=== PATIENT | female | born 1935 | race Caucasian/White ===

== ENCOUNTER 2016-09-07 09:13 | Inpatient (IN) ==
[2016-09-07] MEDS ORDERED: SODIUM CHLORIDE 0.9% 500 ML IV STA ×2 (09:50→12:45)
[2016-09-07] MEDS ORDERED: FUROSEMIDE 20 MG/2 ML VIAL IV STA (10:19)
[2016-09-07] MEDS ORDERED: FUROSEMIDE 20 MG/2 ML VIAL ONE (10:23)
[2016-09-07 10:29] LABS: Basophils % 0.4 % (0.0-0.8); Hematocrit 46.5 VOL% (35.7-47.0); Hemoglobin 15.3 GM/DL (12.0-16.0); Immature Granulocytes % 0.8 %; Immature Granulocytes Absolute 0.04 #; Lymphocytes # 1.5 10*3/uL (1.4-4.0); Mean Corpuscular HGB Conc 32.9 GM/DL (32-36); Mean Corpuscular Hemoglobin 33 PG (27-34); Mean Corpuscular Volume 100.4 FL (87-102); Mean Platelet Volume 10.3 FL (9.6-12.0); Monocytes # 0.6 10*3/uL (0.11-0.8); Monocytes % 10.7 % (1.7-12.7); NRBC # 0.03 10*3/uL; Neutrophils # 3.2 10*3/uL (1.4-7.4); Neutrophils % 60.1 % (38.7-73.9); Platelet Count 156 T/CUMM (130-400); Red Blood Count 4.63 MC/CUMM (3.8-5.5); Red Cell Distribution Width 13.2 % (9.3-17.3); White Blood Count 5.3 T/CUMM (4-12)
[2016-09-07 10:35] LABS: Amorphous Crystals,Urine Occasional /HPF (Few); Apearance,Urine Slightly Hazy (Clear); Bacteria,Urine Occasional /HPF (Few); Bilirubin,Urine Negative (Negative); Blood, Urine Negative (Negative); Glucose,Urine (UA) Negative (Negative); Hyaline Casts,Urine 3 /LPF (0-3); Ketones,Urine Negative (Negative); Mucus,Urine Occasional /LPF (Occasional); Nitrite,Urine Negative (Negative); Protein,Urine 30 MG/DL; RBC,Urine 1 /HPF (0-4); Squamous Epithelial Cell,Urine Occasional /HPF (0-10); Urine Color Yellow (Yellow); Urine Specific Gravity 1.015 (1.001-1.035); Urine Urobilinogen < 2.0 EU/DL (0.2-1.0); WBC,Urine <1 /HPF (0-6)
[2016-09-07 10:59] LABS: Lymphocytes 26 % (20-55); Metamyelocytes 1 %; Nucleated Red Blood Cells 1 (0-5); Platelet Estimate Adequate; Segmented Neutrophils 67 % (50-85); Total Cells Counted 100
[2016-09-07 11:03] LABS: Albumin 2.8 G/DL (3.4-5.0); Bilirubin,Total 0.6 MG/DL (0.2-1.0); Calcium 7.9 MG/DL (8.5-10.1); Osmolality,Calculated 276.4 MOS/KG (273-304); Total Protein 6.1 G/DL (6.4-8.3)
[2016-09-07] MEDS ORDERED: ONDANSETRON 4 MG/2 ML VIAL IV PRN (12:47)
--- NOTE | 2016-09-07 12:47 | Emergency Department Note ---
Lisandro Espitia Jamie, am scribing for, and in the presence of, Yair Snyder MD 09:41. Claudio Espitia Doug C, MD, personally performed the services described in this documentation, ascribed by Pranav Mcmahon in my presence, and it is both accurate and complete . Arrival - Arrival Chief Complaint: Non-Specific Stated Complaint: diarrehea/upper respiratory ED Nursing Triage Note: Pt was seen by Dr Alvarez with URI on given ABX but has not gotten better then yesterday she started having diarrhea. Pt family member also called and said pt has been having AMS. Mode of Arrival: Wheelchair Limitations: No Limitations Source: Patient, RN Notes Reviewed - History of Present Illness HPI Narrative: Patient 80-year-old white female who presents emergency room complaining of diarrhea. Patient states she was diagnosed with upper respiratory tract infection on and started on antibiotics and a cough syrup. She developed diarrhea beginning the next day she still misses had 3 bowel movements already this morning. She states they are watery and there is no mucus or blood in the stool that she is seen. She denies any associated abdominal pain. She denies any fever or chills. She has no past medical history of diverticulitis or other colon problems that she is aware of. Onset (ago): day(s) (1) Consistency: constant Severity: moderate Allergies/Adverse Reactions: Allergies Allergy/AdvReac Type Severity Reaction Status Date / Time cephalexin [From Keflex] Allergy Severe RASH Verified 01/04/15 10:19 Penicillins Allergy Severe RASH Verified 01/04/15 10:19 PLASTIC TAPE Allergy Severe BLISTER Uncoded 01/04/15 10:19 Home Medications: Home Medications Medication Instructions Recorded Confirmed Type Acetaminophen Tab [Tylenol Tab] 650 mg PO Q4-6H PRN 11/23/14 09/07/16 History Dabigatran [Pradaxa] 75 mg PO BID 11/23/14 09/07/16 History Furosemide Tab [Lasix Tab] 40 mg PO QAM 11/23/14 09/07/16 History Gabapentin Cap/Tab [Neurontin 200 mg PO QID 11/23/14 09/07/16 History Cap/Tab] Irbesartan/Hydrochlorothiazide 0.5 each PO DAILY 11/23/14 09/07/16 History [Irbesartan-Hctz 300-12.5 mg Tb] Magnesium Oxide 400 mg PO TID 11/23/14 09/07/16 History Methocarbamol Tab [Robaxin Tab] 750 mg PO QID 11/23/14 09/07/16 History Metoprolol Tartrate Tab [Lopressor 25 mg PO BID 11/23/14 09/07/16 History Tab] Oxycodone HCl/Acetaminophen 1 each PO Q6H PRN 11/23/14 09/07/16 History [Oxycodone-Acetaminophen 10-325] Potassium Chloride 20 meq PO QPM 11/23/14 09/07/16 History Rabeprazole Sodium 20 mg PO BID 11/23/14 09/07/16 History Loperamide Cap [Imodium Cap] 2 mg PO Q4HR PRN #12 capsule 08/07/16 09/07/16 Rx Ondansetron [Ondansetron Odt] 4 mg PO Q4H PRN #10 tab.rapdis 08/07/16 09/07/16 Rx Cefdinir [Cefdinir] 300 mg PO Q12H 09/07/16 09/07/16 History clonazePAM [Clonazepam] 0.25 mg PO DAILY PRN 09/07/16 09/07/16 History fentaNYL 25 MCG/HR PATCH 1 patch TOP Q72H 09/07/16 09/07/16 History [Duragesic 25 Patch] Review of System - Review of System 12 point system: reviewed and no additional remarkable complaints except as stated - Review of System Constitutional: Absent: chills, diaphoresis, fever, weakness Eyes: Absent: vision change Respiratory: Absent: cough Cardiovascular: Absent: chest pain Gastrointestinal: Present: nausea, diarrhea. Absent: constipation Musculoskeletal: Absent: joint swelling Skin: Absent: rash, change in color Neurological: Absent: headache, weakness, numbness, confusion Hematological/Lymphatic: Absent: easy bleeding, easy bruising Medical,Surgical,& Family Hx - Medical History Cardio: History of: Cardiac Dysrhythmia (A-FIB), Hypertension Neurology: History of: Peripheral Neuropathy No history of: Seizures HEENT: History of: Eye Problem (CATARACTS) Endocrine: History of: Dyslipidemia Genitourinary: History of: Recurring Urinary Tract Infections Gastrointestinal: History of: GERD Musculoskeletal: History of: Back/Neck Problems No history of: Musculoskeletal Problems (scoliosis) Other: History of: Skin Problems (FOR [facility] LEFT LOWER LEG 01/04/15 DR. ANDERSON;HX DEBRIDEMENT) - Surgical History Neurologic Surgeries: Patient denies: Neurologic Surgery HEENT Surgeries: Surgical HX of: Eye Surgery (CATARACTS), Tonsilectomy & Adenoidectomy Reproductive Surgeries: Surgical HX of;: Section, Gynecologic Surgery, Hysterectomy Orthopedic Surgeries: Surgical HX of;: Orthopedic Surgery (left shoulder replacement herrrington irina in back), Total Knee Replacement (right, left foot plate) - Family History Family History: Reports;: Family Cancer (SISTER BROTHER), Family Diabetes ( SISTER BROTHER MOM), Family Heart Disease (DAD), Family Stroke (MOM) - Social History Smoking Status: Never smoker Exam Vital Signs: Vital Signs Temperature 97.0 F L 09/07/16 09:49 Pulse Rate 64 09/07/16 09:49 Respiratory Rate 20 09/07/16 09:49 Blood Pressure 148/105 09/07/16 09:49 O2 Sat by Pulse Oximetry 91 L 09/07/16 09:14 - General General appearance: alert, in no apparent distress - Head Head exam: Present: atraumatic, normocephalic, normal inspection - Eye Eye exam: Present: normal appearance, PERRL, EOMI - ENT ENT exam: Present: normal exam, normal oropharynx, mucous membranes moist - Neck Neck exam: Present: normal inspection, full ROM - Chest Chest inspection: Present: normal inspection, symmetric chest wall rise - Respiratory Respiratory exam: Present: normal lung sounds bilaterally - Cardiovascular Cardiovascular exam: Present: regular rate, normal rhythm, normal heart sounds - Abdominal Exam Abdominal exam: Present: soft, normal bowel sounds. Absent: tenderness, guarding, rebound - Extremities Exam Extremities exam: Present: normal inspection, full ROM - Neurological Exam Neurological exam: Present: alert, oriented X3, CN II-XII intact, reflexes normal - Psychiatric Psychiatric exam: Present: normal affect, normal mood - Skin Skin exam: Present: warm, dry, intact, normal color Course Course Narrative: Patient's clinical presentation, laboratory findings were discussed with Kayla who is covering the hospitalist service. Patient be seen in the emergency room and evaluated for admission. Results - Labs CBC & BMP: 09/07/16 10:20 09/07/16 10:20 Lab Results: I have reviewed the patients labs Disposition Clinical Impression: Dehydration, Hyperkalemia Case discussed with: patient, patient's family Disposition: Still a Patient Condition: Stable Time of Disposition: 12:47
--- NOTE | 2016-09-07 12:52 | EKG Report ---
Stationary ECG Study [facility] ER Test Date: 09/07/2016 12:50:15 PM Pat Name: SHILA SPANGLER Department: Room: Gender: F [employer] Operations Division: SUSANNAH Graham : 1935 Requested by: Gigi Craig Order Number: [id number] Jacqui MD: LATOYA HERNANDEZ Intervals Sharon Rate: 59 P: 246 CT: 107 QRS: 24 QRSD: 113 T: -84 QT: 445 QTc: 445 Interpretive Statements JUNCTIONAL RHYTHM RIGHT BUNDLE BRANCH BLOCK MODERATE T-WAVE ABNORMALITY, CONSIDER LATERAL ISCHEMIA MODERATE T-WAVE ABNORMALITY, CONSIDER INFERIOR ISCHEMIA Electronically Signed On 09-08-16 07:01:51 CDT by LATOYA HERNANDEZ [email or web address]
--- NOTE | 2016-09-07 13:08 | Hospitalist History & Physical ---
Assessment and Plan (1) Acute diarrhea Status: Acute Assessment and plan: Will hydrate; obtain stool for c-diff/o&p, WBC. Will start Flagyl prophylactically. Current Visit: Yes (2) Dehydration Status: Acute Assessment and plan: Will rehydrate; and assess in in AM. Current Visit: Yes (3) Hyperkalemia Status: Acute Assessment and plan: Potassium 6.0 at time of admission; I think that this largely in part to volume deficit. Will rehydrate and re-assess in AM. Current Visit: Yes (4) Atrial fibrillation Status: Chronic Assessment and plan: Rate is controlled; we will resume home meds. Current Visit: No (5) Hypertension Status: Chronic Assessment and plan: Blood pressures are stable; will monitor. Current Visit: No (6) Acute kidney injury Status: Acute Current Visit: Yes History of Present Illness Chief complaint: diarrhea/weakness History of present illness: This a very pleasant 80 year old female that presented to the ED at [facility] for evaluation of diarrhea and weakness. The patient has a very complex medical history significant for atrial fibrillation, dyslipidemia, peripheral neuropathy, chronic urinary tract infections, and GERD. She has a surgical history of cataract removal, tonsillectomy, adenoidectomy, Section, hysterectomy, left shoulder replacement, Das irina placement back, right total knee placement, and left foot surgery with hardware placement. On , the patient was seen at her PCP for upper respiratory symptoms. She was told that she an upper respiratory infection. She was prescribed antibiotics and cough syrup for home use. The patient reported the onset of above symptoms on the same day. She reports that she has had multiple stools that were watery in consistency; however absent for blood and mucus. As a result of the persistent diarrhea, she became progressively weak and mildly confused. Her became alarmed and brought her to the ED for further evaluation. Labs were obtained which revealed hypekalemia with a potassium of 6.0, hyponatremia with a sodium of 133, hypochloremia with a chloride of 96,and renal insufficiency with a BUN of 41 and creatinine of 1.3. After brief discussion with both Dr. Snyder and Dr. Guzman, the patient will be admitted to the hospitalist service for continuation of care. Home Medications Medication Instructions Recorded Confirmed Type Acetaminophen Tab [Tylenol Tab] 650 mg PO Q4-6H PRN 11/23/14 09/07/16 History Dabigatran [Pradaxa] 75 mg PO BID 11/23/14 09/07/16 History Furosemide Tab [Lasix Tab] 40 mg PO QAM 11/23/14 09/07/16 History Gabapentin Cap/Tab [Neurontin 200 mg PO QID 11/23/14 09/07/16 History Cap/Tab] Irbesartan/Hydrochlorothiazide 0.5 each PO DAILY 11/23/14 09/07/16 History [Irbesartan-Hctz 300-12.5 mg Tb] Magnesium Oxide 400 mg PO TID 11/23/14 09/07/16 History Methocarbamol Tab [Robaxin Tab] 750 mg PO QID 11/23/14 09/07/16 History Metoprolol Tartrate Tab [Lopressor 25 mg PO BID 11/23/14 09/07/16 History Tab] Oxycodone HCl/Acetaminophen 1 each PO Q6H PRN 11/23/14 09/07/16 History [Oxycodone-Acetaminophen 10-325] Potassium Chloride 20 meq PO QPM 11/23/14 09/07/16 History Rabeprazole Sodium 20 mg PO BID 11/23/14 09/07/16 History Loperamide Cap [Imodium Cap] 2 mg PO Q4HR PRN #12 capsule 08/07/16 09/07/16 Rx Ondansetron [Ondansetron Odt] 4 mg PO Q4H PRN #10 tab.rapdis 08/07/16 09/07/16 Rx Cefdinir [Cefdinir] 300 mg PO Q12H 09/07/16 09/07/16 History clonazePAM [Clonazepam] 0.25 mg PO DAILY PRN 09/07/16 09/07/16 History fentaNYL 25 MCG/HR PATCH 1 patch TOP Q72H 09/07/16 09/07/16 History [Duragesic 25 Patch] Allergies Allergy/AdvReac Type Severity Reaction Status Date / Time cephalexin [From Keflex] Allergy Severe RASH Verified 01/04/15 10:19 Penicillins Allergy Severe RASH Verified 01/04/15 10:19 PLASTIC TAPE Allergy Severe BLISTER Uncoded 01/04/15 10:19 Medical,Surgical,& Family Hx - Medical History Cardio: History of: Cardiac Dysrhythmia (A-FIB), Hypertension Neurology: History of: Peripheral Neuropathy No history of: Seizures HEENT: History of: Eye Problem (CATARACTS) Endocrine: History of: Dyslipidemia Genitourinary: History of: Recurring Urinary Tract Infections Gastrointestinal: History of: GERD Musculoskeletal: History of: Back/Neck Problems No history of: Musculoskeletal Problems (scoliosis) Other: History of: Skin Problems (FOR [facility] LEFT LOWER LEG 01/04/15 DR. ANDERSON;HX DEBRIDEMENT) - Surgical History Neurologic Surgeries: Patient denies: Neurologic Surgery HEENT Surgeries: Surgical HX of: Eye Surgery (CATARACTS), Tonsilectomy & Adenoidectomy Reproductive Surgeries: Surgical HX of;: Section, Gynecologic Surgery, Hysterectomy Orthopedic Surgeries: Surgical HX of;: Orthopedic Surgery (left shoulder replacement herrrington irina in back), Total Knee Replacement (right, left foot plate) - Family History Family History: Reports;: Family Cancer (SISTER BROTHER), Family Diabetes ( SISTER BROTHER MOM), Family Heart Disease (DAD), Family Stroke (MOM) - Social History Smoking Status: Never smoker 12 point system: reviewed and no additional remarkable complaints except as stated Exam - Constitutional General appearance: normal weight, no acute distress - Head Head exam: Present: normal inspection, normocephalic, atraumatic - Eye Eye exam: Present: EOMI. Absent: conjunctival injection Pupils: Present: BLANKA, normal accommodation - ENT ENT exam: Present: normal exam, normal external ear exam - Neck Neck exam: Present: normal inspection. Absent: lymphadenopathy, meningismus, tenderness, thyromegaly - Respiratory Respiratory exam: Present: clear to auscultation bilaterally. Absent: rales, rhonchi, stridor, wheezes - Cardiovascular Cardiovascular exam: Present: bradycardia, irregular rhythm (a-fib). Absent: carotid bruit, diastolic murmur, gallop, rubs, systolic murmur - GI/Abdominal GI/Abdominal exam: Present: normal bowel sounds. Absent: distended, firm, guarding, mass, soft - Extremities Exam Extremities exam: Present: normal inspection, normal capillary refill, full ROM. Absent: calf tenderness, edema - Back Exam Back exam: Present: normal inspection - Neurological Exam Neurological exam: Present: alert, oriented X3. Absent: CN II-XII intact - Psychiatric Psychiatric exam: Present: normal affect, normal mood - Skin Skin exam: Present: normal color, warm, dry Results - Labs CBC & BMP: 09/07/16 10:20 09/07/16 10:20 Lab Results: I have reviewed the past 24 hour labs
[2016-09-07 13:16] LABS: Magnesium 2.5 MG/DL (1.8-2.4); Risk Ratio 2.77; Thyroid Stimulating Hormone 1.45 uIU/ml (0.358-3.74); VLDL CHOLESTEROL 27.6 MG/DL
[2016-09-07] MEDS: DEXTROSE 5% NACL 0.45% 1,000 ML IV SCH (15:14)
[2016-09-07] MEDS: metroNIDAZOLE INJ 500 MG in PREMIX 1 EACH IV SCH ×2 (15:14→20:09)
--- NOTE | 2016-09-07 15:59 | XRay Report ---
XR chest 1V portable Indication: Wheezing and cough Comparison: None. Technique: Portable AP chest was performed. Findings: Mild cardiomegaly is present. Opacification of the left lung base may in part reflect pleural fluid or atelectasis. Additional stranding in the right cardiophrenic angle is demonstrated. Previous repair of scoliosis as well as prior left glenohumeral joint arthroplasty are present. The right glenohumeral joint appears to be subluxed. This may reflect positioning. Impression: 1. Infectious process and/or pleural fluid within the left lung base is not excluded. 09/07/2016 3:56 PM PROCEDURE INTERPRETED AT [facility] [place] DEPARTMENT OF RADIOLOGY Final Report Signed by: Dr. Moisés Sanches
[2016-09-07] MEDS: ALBUTEROL/IPRATROPIUM 3 ML NEB RESP TX SCH ×2 (19:13→23:58)
[2016-09-08] MEDS: metroNIDAZOLE INJ 500 MG in PREMIX 1 EACH IV SCH ×4 (03:15→20:32)
[2016-09-08] MEDS: DEXTROSE 5% NACL 0.45% 1,000 ML IV SCH (03:17)
[2016-09-08 03:26] LABS: Basophils % 0.4 % (0.0-0.8); Hematocrit 41.7 VOL% (35.7-47.0); Hemoglobin 13.3 GM/DL (12.0-16.0); Immature Granulocytes % 0.6 %; Immature Granulocytes Absolute 0.03 #; Lymphocytes # 1.4 10*3/uL (1.4-4.0); Mean Corpuscular HGB Conc 31.9 GM/DL (32-36); Mean Corpuscular Hemoglobin 33 PG (27-34); Mean Platelet Volume 10.2 FL (9.6-12.0); Monocytes # 0.5 10*3/uL (0.11-0.8); Monocytes % 10.1 % (1.7-12.7); NRBC # 0.03 10*3/uL; Neutrophils % 60.9 % (38.7-73.9); Platelet Count 157 T/CUMM (130-400); Red Blood Count 4.05 MC/CUMM (3.8-5.5); Red Cell Distribution Width 12.9 % (9.3-17.3)
[2016-09-08 03:30] LABS: Albumin 2.5 G/DL (3.4-5.0); Bilirubin,Total 0.7 MG/DL (0.2-1.0); Calcium 7.5 MG/DL (8.5-10.1); Magnesium 2.1 MG/DL (1.8-2.4); Osmolality,Calculated 285.5 MOS/KG (273-304); Potassium 4.2 MMOL/L (3.5-5.1)
[2016-09-08] MEDS: ALBUTEROL/IPRATROPIUM 3 ML NEB RESP TX SCH ×5 (03:55→19:38)
[2016-09-08 04:36] LABS: Lymphocytes 27 % (20-55); Platelet Estimate Normal; Segmented Neutrophils 63 % (50-85); Total Cells Counted 100
[2016-09-08] MEDS ORDERED: ONDANSETRON ODT 4 MG TABLET PO PRN (09:54)
[2016-09-08] MEDS ORDERED: LOPERAMIDE 2 MG CAPSULE PO PRN (09:54)
[2016-09-08] MEDS ORDERED: fentaNYL 25 MCG/HR PATCH TRANSDERM SCH (10:00)
[2016-09-08] MEDS: hydroCHLOROthiazide 12.5 MG CAPSULE PO SCH (10:18)
[2016-09-08] MEDS: IRBESARTAN 150 MG TABLET PO SCH (10:19)
[2016-09-08] MEDS: DABIGATRAN 75 MG CAPSULE PO SCH ×2 (10:19→20:32)
[2016-09-08] MEDS: METOPROLOL TARTRATE 25 MG TABLET PO SCH ×2 (10:19→20:32)
[2016-09-08] MEDS ORDERED: clonazePAM 0.5 MG TABLET PO PRN (10:30)
--- NOTE | 2016-09-08 11:50 | Hospitalist Progress Note ---
Assessment and Plan - Time spent with patient Time spent with patient: Greater than 30 minutes (1) Pneumonia Status: Acute Assessment and plan: Start Ciprofloxacin. Current Visit: Yes (2) Diarrhea Status: Acute Assessment and plan: Stool studies negative, start lactobacillus and imodium prn. Current Visit: Yes (3) Weakness Status: Acute Assessment and plan: PT/OT/SW. Current Visit: Yes (4) Atrial fibrillation Status: Chronic Assessment and plan: Sinus, continue anticoagulant. Current Visit: No (5) Hypertension Status: Chronic Assessment and plan: Continue medications. Current Visit: No Hospitalist: Subjective Interval history: States she is weak this morning. Has no appetite. Furthermore complains of nausea with no vomiting. Exam - Constitutional Vitals: Period Temp Pulse Resp BP Sys/Stiles Pulse Ox Last 24 Hr 96.4 F-98.6 F 59-91 18-20 106-160/63-92 90-100 General appearance: no acute distress, over weight - Head Head exam: Present: normocephalic, atraumatic - Eye Eye exam: Present: EOMI Pupils: Present: BLANKA - ENT ENT exam: Present: normal exam - Neck Neck exam: Present: normal inspection - Respiratory Respiratory exam: Present: other (coarse breath sounds bilaterally). Absent: rhonchi, wheezes - Cardiovascular Cardiovascular exam: Present: regular rate and rhythm. Absent: gallop, rubs, systolic murmur - GI/Abdominal GI/Abdominal exam: Present: normal bowel sounds, soft. Absent: distended, firm , guarding, tenderness, rebound - Extremities Exam Extremities exam: Present: normal inspection. Absent: calf tenderness, edema Results - Labs CBC & BMP: 09/08/16 01:44 09/08/16 01:44 Lab Results: I have reviewed the past 24 hour labs
[2016-09-08] MEDS: CIPROFLOXACIN INJ 400 MG in PREMIX 1 EACH IV SCH ×2 (12:07→22:24)
[2016-09-08] MEDS: METHOCARBAMOL 750 MG TABLET PO SCH ×3 (12:10→20:31)
[2016-09-08] MEDS: GABAPENTIN 100 MG CAPSULE PO SCH ×3 (12:10→20:31)
[2016-09-08] MEDS: TEMAZEPAM 15 MG CAPSULE PO SCH (20:31)
[2016-09-08] MEDS: PANTOPRAZOLE 40 MG TABLET PO SCH (20:31)
[2016-09-08] MEDS: oxyCODONE/ACETAMINOPHEN 5-325 MG TABLET PO PRN (20:35)
[2016-09-09] MEDS: ALBUTEROL/IPRATROPIUM 3 ML NEB RESP TX SCH ×6 (00:35→20:18)
[2016-09-09] MEDS: metroNIDAZOLE INJ 500 MG in PREMIX 1 EACH IV SCH ×4 (02:47→20:56)
[2016-09-09 06:10] LABS: Basophils % 0.2 % (0.0-0.8); Eosinophils % 0.2 % (0.00-10.9); Hematocrit 42.9 VOL% (35.7-47.0); Immature Granulocytes % 0.7 %; Immature Granulocytes Absolute 0.03 #; Lymphocytes # 1.1 10*3/uL (1.4-4.0); Lymphocytes % 24.5 % (21.3-54.2); Mean Corpuscular HGB Conc 32.6 GM/DL (32-36); Mean Corpuscular Hemoglobin 33 PG (27-34); Mean Corpuscular Volume 100.9 FL (87-102); Mean Platelet Volume 9.7 FL (9.6-12.0); Monocytes # 0.6 10*3/uL (0.11-0.8); Monocytes % 12.6 % (1.7-12.7); Neutrophils # 2.9 10*3/uL (1.4-7.4); Neutrophils % 61.8 % (38.7-73.9); Platelet Count 177 T/CUMM (130-400); Red Blood Count 4.25 MC/CUMM (3.8-5.5); Red Cell Distribution Width 13.1 % (9.3-17.3); White Blood Count 4.6 T/CUMM (4-12)
[2016-09-09 06:50] LABS: Osmolality,Calculated 277.5 MOS/KG (273-304); Potassium 4.1 MMOL/L (3.5-5.1)
--- NOTE | 2016-09-09 10:37 | Hospitalist Progress Note ---
Assessment and Plan - Time spent with patient Time spent with patient: Greater than 30 minutes (1) Pneumonia Status: Acute Assessment and plan: Continue Ciprofloxacin. Current Visit: Yes (2) Diarrhea Status: Acute Assessment and plan: Stool studies negative, continue lactobacillus and imodium prn. Current Visit: Yes (3) Weakness Status: Acute Assessment and plan: PT/OT/SW. Patient is not interested in swing bed and would prefer home PT. Current Visit: Yes (4) Atrial fibrillation Status: Chronic Assessment and plan: Sinus, continue anticoagulant. Current Visit: No (5) Hypertension Status: Chronic Assessment and plan: Continue medications. Current Visit: No Hospitalist: Subjective Interval history: No complaints or overnight events. She states she is feeling much better comparatively and diarrhea is improving. Exam - Constitutional Vitals: Period Temp Pulse Resp BP Sys/Stiles Pulse Ox Last 24 Hr 96 F-97.8 F 70-96 16-20 135-171/71-87 92-100 General appearance: no acute distress - Head Head exam: Present: normocephalic, atraumatic - Eye Eye exam: Present: EOMI Pupils: Present: BLANKA - ENT ENT exam: Present: normal exam - Neck Neck exam: Present: normal inspection - Respiratory Respiratory exam: Present: clear to auscultation bilaterally. Absent: rhonchi, wheezes - Cardiovascular Cardiovascular exam: Present: regular rate and rhythm. Absent: gallop, rubs, systolic murmur - GI/Abdominal GI/Abdominal exam: Present: normal bowel sounds, soft. Absent: distended, firm , guarding, tenderness, rebound - Extremities Exam Extremities exam: Present: normal inspection. Absent: calf tenderness, edema Results - Labs CBC & BMP: 09/09/16 05:34 09/09/16 05:34 Lab Results: I have reviewed the past 24 hour labs
[2016-09-09] MEDS: hydroCHLOROthiazide 12.5 MG CAPSULE PO SCH (10:48)
[2016-09-09] MEDS: DABIGATRAN 75 MG CAPSULE PO SCH ×2 (10:49→20:51)
[2016-09-09] MEDS: IRBESARTAN 150 MG TABLET PO SCH (10:49)
[2016-09-09] MEDS: GABAPENTIN 100 MG CAPSULE PO SCH ×4 (10:50→20:51)
[2016-09-09] MEDS: METOPROLOL TARTRATE 25 MG TABLET PO SCH ×2 (10:50→20:51)
[2016-09-09] MEDS: FUROSEMIDE 40 MG TABLET PO SCH (10:51)
[2016-09-09] MEDS: PANTOPRAZOLE 40 MG TABLET PO SCH ×2 (10:51→20:51)
[2016-09-09] MEDS: CIPROFLOXACIN INJ 400 MG in PREMIX 1 EACH IV SCH ×2 (10:53→20:50)
[2016-09-09] MEDS: oxyCODONE/ACETAMINOPHEN 5-325 MG TABLET PO PRN ×2 (11:01→20:51)
[2016-09-09] MEDS: METHOCARBAMOL 750 MG TABLET PO SCH ×4 (11:01→20:51)
[2016-09-09] MEDS: TEMAZEPAM 15 MG CAPSULE PO SCH (20:51)
[2016-09-10] MEDS: ALBUTEROL/IPRATROPIUM 3 ML NEB RESP TX SCH ×4 (00:40→11:13)
[2016-09-10] MEDS: metroNIDAZOLE INJ 500 MG in PREMIX 1 EACH IV SCH ×2 (02:29→10:50)
[2016-09-10] MEDS ORDERED: DESITIN 4OZ/NYSTATIN 15 GRAM MIXTURE PASTE TOP SCH (09:00)
[2016-09-10] MEDS: hydroCHLOROthiazide 12.5 MG CAPSULE PO SCH (09:00)
--- NOTE | 2016-09-10 10:09 | Discharge Summary ---
Hospital Course - Hospital Course Hospital Course: Ms. Bill was admitted for evaluation of diarrhea and weakness. She was found to have pneumonia on chest x-ray. She was initiated on metronidazole and ciprofloxacin. She improved on this regimen and her stool studies returned negative for C. difficile. At discharge she was given a written prescription for ciprofloxacin. By discharge patient had met maximum benefit of hospitalization. I spent 33 minutes coordinating this discharge. - Time spent with patient Time with patient DS: Greater than 30 minutes Diagnosis - Discharge Diagnosis (1) Pneumonia Status: Acute (2) Diarrhea Status: Acute (3) Weakness Status: Acute (4) Atrial fibrillation Status: Chronic (5) Hypertension Status: Chronic Discharge Plan - Discharge Data Disposition: Disch To Home/Self Care Condition at Discharge: Stable Discharge Diet: advance to your usual diet Activity: resume usual activities as tolerated Hygiene: no restrictions - Discharge Medications New Ciprofloxacin HCl [Ciprofloxacin Tab] 500 mg PO BID #12 tablet Lactobacillus Acidophilus [Acidophilus] 2 each PO TID #180 capsule Continue Oxycodone HCl/Acetaminophen [Oxycodone-Acetaminophen 10-325] 1 each PO Q6H PRN PRN Reason: Pain Gabapentin Cap/Tab [Neurontin Cap/Tab] 200 mg PO QID Magnesium Oxide 400 mg PO TID Potassium Chloride 20 meq PO QPM Furosemide Tab [Lasix Tab] 40 mg PO QAM Methocarbamol Tab [Robaxin Tab] 750 mg PO QID Rabeprazole Sodium 20 mg PO BID Irbesartan/Hydrochlorothiazide [Irbesartan-Hctz 300-12.5 mg Tb] 0.5 each PO DAILY Metoprolol Tartrate Tab [Lopressor Tab] 25 mg PO BID Dabigatran [Pradaxa] 75 mg PO BID Acetaminophen Tab [Tylenol Tab] 650 mg PO Q4-6H PRN PRN Reason: Pain Ondansetron [Ondansetron Odt] 4 mg PO Q4H PRN #10 tab.rapdis PRN Reason: Nausea clonazePAM [Clonazepam] 0.25 mg PO DAILY PRN PRN Reason: Anxiety fentaNYL 25 MCG/HR PATCH [Duragesic 25 Patch] 1 patch TOP Q72H Loperamide Cap [Imodium Cap] 2 mg PO Q4HR PRN #12 capsule PRN Reason: Diarrhea Cefdinir 300 mg PO Q12H Temazepam [Restoril] 30 mg PO BEDTIME - Follow Up or Referral - Forms/Instructions Exam - Constitutional Vitals: Period Temp Pulse Resp BP Sys/Stiles Pulse Ox Last 24 Hr 96.6 F-98.4 F 63-93 18-22 112-147/64-80 87-99 General appearance: no acute distress, over weight - Head Head exam: Present: normal inspection, normocephalic, atraumatic - Eye Eye exam: Present: EOMI Pupils: Present: BLANKA - ENT ENT exam: Present: normal exam - Neck Neck exam: Present: normal inspection - Respiratory Respiratory exam: Present: clear to auscultation bilaterally. Absent: accessory muscle use, prolonged expiratory phase, wheezes - Cardiovascular Cardiovascular exam: Present: regular rate and rhythm. Absent: bradycardia, irregular rhythm, systolic murmur - GI/Abdominal GI/Abdominal exam: Present: normal bowel sounds. Absent: ascites, distended, hypoactive bowel sounds, tenderness - Extremities Exam Extremities exam: Present: normal inspection Discharge Results Procedures and tests throughout hospitalization: Pending Orders 09/08/16 09:15 Stool Culture/Campy/[place]ers[place] Stat Labs on day of discharge: Preliminary micro results at discharge 09/08/16 09:15 Stool Culture - Preliminary Stool No enteric pathogens at 24 hrs DS: Provider Date of admission: 09/07/16 12:45 Primary care physician: . No PCP Attending physician on admission: Julissa Andersen MD Consults: 09/07/16 12:48 Consult to Physical Therapy [CONS] Routine Reason for Physical Therapy: Weakness 09/07/16 15:09 Consult to Physical Therapy [CONS] Routine Reason for Physical Therapy: Evaluate and Treat Discharging clinician: Julissa Andersen MD Expected date of discharge: 09/10/16
[2016-09-10] MEDS: DABIGATRAN 75 MG CAPSULE PO SCH (10:49)
[2016-09-10] MEDS: IRBESARTAN 150 MG TABLET PO SCH (10:49)
[2016-09-10] MEDS: METOPROLOL TARTRATE 25 MG TABLET PO SCH (10:50)
[2016-09-10] MEDS: METHOCARBAMOL 750 MG TABLET PO SCH (10:50)
[2016-09-10] MEDS: PANTOPRAZOLE 40 MG TABLET PO SCH (10:50)
[2016-09-10] MEDS: FUROSEMIDE 40 MG TABLET PO SCH (10:50)
[2016-09-10] MEDS: GABAPENTIN 100 MG CAPSULE PO SCH (10:50)
[2016-09-10] MEDS: CIPROFLOXACIN INJ 400 MG in PREMIX 1 EACH IV SCH (10:57)
[2016-09-10] MEDS ORDERED: hydroCHLOROthiazide 25 MG TABLET PO SCH (11:00)
[2016-09-10 14:54] VITALS: BP 127/58
== END 2016-09-10 12:40 | disposition home health service (06) | DRG 682 ==
LOC: N.ED 09:13 → N.EDINP 12:45 → N.2E 13:02
PROVIDERS: ADMIT Internal Medicine; ATTEND Internal Medicine

== ENCOUNTER 2017-02-17 07:37 | Inpatient (IN) ==
[2017-02-17] MEDS ORDERED: GENTAMICIN INJ 120 MG in SODIUM CHLORIDE 0.9% 100 ML IV STA (08:08)
[2017-02-17] MEDS ORDERED: ONDANSETRON 4 MG/2 ML VIAL IV STA ×2 (08:08→10:02)
[2017-02-17] MEDS ORDERED: SODIUM CHLORIDE 0.9% 500 ML IV STA (08:09)
[2017-02-17] MEDS ORDERED: ONDANSETRON 4 MG/2 ML VIAL ONE ×2 (08:24→10:03)
[2017-02-17 08:29] LABS: Basophils % 0.5 % (0.0-0.8); Eosinophils # 0.1 10*3/uL (0.0-0.87); Eosinophils % 0.7 % (0.00-10.9); Hematocrit 41.8 VOL% (35.7-47.0); Hemoglobin 14.9 GM/DL (12.0-16.0); Immature Granulocytes % 0.3 %; Immature Granulocytes Absolute 0.03 #; Lymphocytes # 1.2 10*3/uL (1.4-4.0); Lymphocytes % 13.8 % (21.3-54.2); Mean Corpuscular HGB Conc 35.6 GM/DL (32-36); Mean Corpuscular Hemoglobin 34 PG (27-34); Mean Corpuscular Volume 94.4 FL (87-102); Mean Platelet Volume 9.2 FL (9.6-12.0); Monocytes # 0.7 10*3/uL (0.11-0.8); Monocytes % 8.2 % (1.7-12.7); Neutrophils # 6.8 10*3/uL (1.4-7.4); Neutrophils % 76.5 % (38.7-73.9); Platelet Count 213 T/CUMM (130-400); Red Blood Count 4.43 MC/CUMM (3.8-5.5); Red Cell Distribution Width 11.9 % (9.3-17.3); White Blood Count 8.9 T/CUMM (4-12)
[2017-02-17 08:34] LABS: Apearance,Urine CLEAR (Clear); Bilirubin,Urine Negative (Negative); Blood, Urine Small mg/dL (Negative); Glucose,Urine (UA) Negative (Negative); Ketones,Urine Negative (Negative); Nitrite,Urine Positive (Negative); Protein,Urine Negative; RBC,Urine <1 /HPF (0-4); Urine Specific Gravity 1.004 (1.001-1.035); Urine Urobilinogen < 2.0 EU/DL (0.2-1.0); WBC,Urine 1 /HPF (0-6)
[2017-02-17 08:35] LABS: Urine Color Yellow (Yellow)
[2017-02-17 08:54] LABS: Calcium 8.9 MG/DL (8.5-10.1); Osmolality,Calculated 241.3 MOS/KG (273-304); Potassium 4.2 MMOL/L (3.5-5.1)
[2017-02-17] MEDS ORDERED: DIPHENOXYLATE/ATROPINE 2.5-0.025 MG TABLET PO PRN (09:43)
[2017-02-17] MEDS ORDERED: clonazePAM 0.5 MG TABLET PO PRN (09:43)
[2017-02-17] MEDS ORDERED: PROMETHAZINE 25 MG TABLET PO PRN (09:43)
[2017-02-17] MEDS ORDERED: LORazepam 1 MG TABLET PO STA (10:46)
[2017-02-17] MEDS ORDERED: LORazepam 1 MG TABLET ONE (10:47)
[2017-02-17 10:51] LABS: Troponin I Only < 0.015 NG/ML (0.00-0.045)
[2017-02-17] MEDS ORDERED: LORazepam 2 MG/1 ML VIAL IV STA (12:56)
[2017-02-17] MEDS ORDERED: ACETAMINOPHEN 325 MG TABLET PO PRN (12:56)
[2017-02-17] MEDS ORDERED: PROMETHAZINE 25 MG/1 ML VIAL IM PRN (12:56)
[2017-02-17] MEDS: SODIUM CHLORIDE 0.9% 1,000 ML IV SCH (13:45)
[2017-02-17] MEDS: ENOXAPARIN 30 MG/0.3 ML SYRINGE SUBCUT SCH (13:48)
[2017-02-17] MEDS: MEROPENEM 1,000 MG in SODIUM CHLORIDE 0.9% 50 ML IV SCH (13:50)
[2017-02-17] MEDS: DICYCLOMINE 20 MG TABLET PO SCH ×3 (13:59→21:13)
[2017-02-17] MEDS: MAGNESIUM OXIDE 400 MG TABLET PO SCH ×2 (17:44→21:13)
[2017-02-17] MEDS: DICLOFENAC 1% GEL 100 GM TUBE TOP SCH (17:45)
[2017-02-17] MEDS: MULTIVITAMIN (INTRINSIC) CAPSULE PO SCH (21:12)
[2017-02-17] MEDS: METOPROLOL TARTRATE 25 MG TABLET PO SCH (21:12)
[2017-02-17] MEDS: PANTOPRAZOLE 40 MG TABLET PO SCH (21:14)
[2017-02-17] MEDS: DABIGATRAN 75 MG CAPSULE PO SCH (21:14)
[2017-02-17] MEDS: TEMAZEPAM 15 MG CAPSULE PO SCH (21:14)
[2017-02-18] MEDS: SODIUM CHLORIDE 0.9% 1,000 ML IV SCH ×3 (00:21→11:43)
[2017-02-18] MEDS: DICLOFENAC 1% GEL 100 GM TUBE TOP SCH ×4 (00:46→21:49)
[2017-02-18] MEDS: MEROPENEM 1,000 MG in SODIUM CHLORIDE 0.9% 50 ML IV SCH ×2 (02:07→13:56)
[2017-02-18 05:32] LABS: Basophils # 0.1 10*3/uL (0.0-0.2); Eosinophils # 0.1 10*3/uL (0.0-0.87); Eosinophils % 1.7 % (0.00-10.9); Hematocrit 39.1 VOL% (35.7-47.0); Immature Granulocytes % 0.6 %; Immature Granulocytes Absolute 0.04 #; Lymphocytes # 1.5 10*3/uL (1.4-4.0); Lymphocytes % 21.1 % (21.3-54.2); Mean Corpuscular HGB Conc 33.2 GM/DL (32-36); Mean Corpuscular Hemoglobin 33 PG (27-34); Mean Corpuscular Volume 99.7 FL (87-102); Mean Platelet Volume 9.8 FL (9.6-12.0); Monocytes # 0.7 10*3/uL (0.11-0.8); Monocytes % 10.4 % (1.7-12.7); Neutrophils # 4.5 10*3/uL (1.4-7.4); Neutrophils % 65.2 % (38.7-73.9); Platelet Count 196 T/CUMM (130-400); Red Blood Count 3.92 MC/CUMM (3.8-5.5); Red Cell Distribution Width 12.3 % (9.3-17.3); White Blood Count 6.9 T/CUMM (4-12)
[2017-02-18 05:58] LABS: Calcium 7.9 MG/DL (8.5-10.1); Magnesium 2.3 MG/DL (1.8-2.4); Osmolality,Calculated 258.8 MOS/KG (273-304); Potassium 4.2 MMOL/L (3.5-5.1)
[2017-02-18] MEDS: ONDANSETRON 4 MG/2 ML VIAL IV PRN ×2 (08:51→12:39)
[2017-02-18] MEDS: MAGNESIUM OXIDE 400 MG TABLET PO SCH ×3 (09:49→21:30)
[2017-02-18] MEDS: DICYCLOMINE 20 MG TABLET PO SCH ×4 (09:49→21:29)
[2017-02-18] MEDS: DABIGATRAN 75 MG CAPSULE PO SCH ×2 (09:49→21:29)
[2017-02-18] MEDS: CHOLECALCIFEROL 1,000 UNIT TABLET PO SCH (09:50)
[2017-02-18] MEDS: GABAPENTIN 100 MG CAPSULE PO SCH ×4 (09:50→21:29)
[2017-02-18] MEDS: ASCORBIC ACID 500 MG TABLET PO SCH (09:50)
[2017-02-18] MEDS: MULTIVITAMIN (CENTRUM) TABLET PO SCH (09:50)
[2017-02-18] MEDS: ISOSORBIDE MONONITRATE 30 MG TABLET PO SCH (09:51)
[2017-02-18] MEDS: FLUTICASONE 50 MCG NASAL SPRAY 16 GM BOTTLE BOTH NARES SCH (09:51)
[2017-02-18] MEDS: MULTIVITAMIN (INTRINSIC) CAPSULE PO SCH ×2 (09:51→21:29)
[2017-02-18] MEDS: PANTOPRAZOLE 40 MG TABLET PO SCH ×2 (09:51→21:29)
[2017-02-18] MEDS: METOPROLOL TARTRATE 25 MG TABLET PO SCH ×2 (09:56→21:30)
[2017-02-18] MEDS: ENOXAPARIN 30 MG/0.3 ML SYRINGE SUBCUT SCH (13:56)
[2017-02-18] MEDS: TEMAZEPAM 15 MG CAPSULE PO SCH (21:30)
[2017-02-18] MEDS ORDERED: HYDROmorphone 2 MG/1 ML VIAL IV PRN (23:04)
[2017-02-19] MEDS: MEROPENEM 1,000 MG in SODIUM CHLORIDE 0.9% 50 ML IV SCH ×2 (02:07→13:42)
[2017-02-19] MEDS: SODIUM CHLORIDE 0.9% 1,000 ML IV SCH (05:33)
[2017-02-19 07:14] LABS: Calcium 8.2 MG/DL (8.5-10.1); Magnesium 2.3 MG/DL (1.8-2.4); Osmolality,Calculated 270.8 MOS/KG (273-304); Potassium 4.5 MMOL/L (3.5-5.1)
[2017-02-19] MEDS: PANTOPRAZOLE 40 MG TABLET PO SCH (08:23)
[2017-02-19] MEDS: DICLOFENAC 1% GEL 100 GM TUBE TOP SCH ×2 (08:23→13:46)
[2017-02-19] MEDS: FLUTICASONE 50 MCG NASAL SPRAY 16 GM BOTTLE BOTH NARES SCH (08:23)
[2017-02-19] MEDS: DABIGATRAN 75 MG CAPSULE PO SCH (08:24)
[2017-02-19] MEDS: ISOSORBIDE MONONITRATE 30 MG TABLET PO SCH (08:24)
[2017-02-19] MEDS: MULTIVITAMIN (CENTRUM) TABLET PO SCH (08:24)
[2017-02-19] MEDS: MULTIVITAMIN (INTRINSIC) CAPSULE PO SCH (08:24)
[2017-02-19] MEDS: CHOLECALCIFEROL 1,000 UNIT TABLET PO SCH (08:24)
[2017-02-19] MEDS: GABAPENTIN 100 MG CAPSULE PO SCH ×2 (08:24→13:41)
[2017-02-19] MEDS: ASCORBIC ACID 500 MG TABLET PO SCH (08:25)
[2017-02-19] MEDS: MAGNESIUM OXIDE 400 MG TABLET PO SCH ×2 (08:27→13:46)
[2017-02-19] MEDS: DICYCLOMINE 20 MG TABLET PO SCH ×2 (08:28→13:42)
[2017-02-19] MEDS: METOPROLOL TARTRATE 25 MG TABLET PO SCH (08:30)
[2017-02-19] MEDS ORDERED: FUROSEMIDE 40 MG TABLET PO SCH (09:00)
[2017-02-19 11:44] VITALS: BP 105/54
== END 2017-02-19 15:30 | disposition home health service (06) | DRG 690 ==
LOC: N.ED 07:37 → N.EDINP 09:03 → N.4E 12:39
PROVIDERS: ADMIT Internal Medicine; ATTEND Internal Medicine

== ENCOUNTER 2017-03-11 22:57 | Inpatient (IN) ==
[2017-03-11] MEDS ORDERED: MORPHINE 2 MG/1 ML SYRINGE IV STA (23:05)
[2017-03-11] MEDS ORDERED: ONDANSETRON 4 MG/2 ML VIAL IV STA (23:32)
[2017-03-11 23:33] LABS: Basophils % 0.6 % (0.0-0.8); Eosinophils # 0.1 10*3/uL (0.0-0.87); Hemoglobin 13.8 GM/DL (12.0-16.0); Immature Granulocytes % 0.6 %; Immature Granulocytes Absolute 0.04 #; Lymphocytes # 1.2 10*3/uL (1.4-4.0); Lymphocytes % 16.4 % (21.3-54.2); Mean Corpuscular HGB Conc 34.5 GM/DL (32-36); Mean Corpuscular Hemoglobin 33 PG (27-34); Mean Corpuscular Volume 96.2 FL (87-102); Mean Platelet Volume 9.2 FL (9.6-12.0); Monocytes # 0.5 10*3/uL (0.11-0.8); Monocytes % 6.9 % (1.7-12.7); Neutrophils # 5.4 10*3/uL (1.4-7.4); Neutrophils % 74.5 % (38.7-73.9); Platelet Count 201 T/CUMM (130-400); Red Blood Count 4.16 MC/CUMM (3.8-5.5); Red Cell Distribution Width 12.3 % (9.3-17.3); White Blood Count 7.2 T/CUMM (4-12)
[2017-03-11] MEDS ORDERED: MORPHINE 2 MG/1 ML SYRINGE ONE ×2 (23:36)
[2017-03-11] MEDS ORDERED: ONDANSETRON 4 MG/2 ML VIAL ONE (23:36)
[2017-03-12 00:10] LABS: Albumin 3.2 G/DL (3.4-5.0); Bilirubin,Total 0.5 MG/DL (0.2-1.0); Calcium 7.8 MG/DL (8.5-10.1); Osmolality,Calculated 235.9 MOS/KG (273-304); Potassium 4.9 MMOL/L (3.5-5.1); Total Protein 6.4 G/DL (6.4-8.3)
[2017-03-12 00:26] LABS: Troponin I Only 0.055 NG/ML (0.00-0.045)
[2017-03-12] MEDS ORDERED: MEROPENEM 1,000 MG in SYRINGE 1 EACH IV STA (01:45)
[2017-03-12] MEDS ORDERED: MEROPENEM 1,000 MG VIAL IV ONE (01:58)
[2017-03-12 03:00] LABS: Creatinine,Urine Random 253 MG/DL
[2017-03-12] MEDS: AZITHROMYCIN INJ 500 MG in SODIUM CHLORIDE 0.9% 250 ML IV SCH (03:44)
[2017-03-12] MEDS: SODIUM CHLORIDE 0.9% 1,000 ML IV SCH ×2 (04:42→22:45)
[2017-03-12] MEDS: ALBUTEROL/IPRATROPIUM 3 ML NEB RESP TX SCH ×3 (07:00→19:54)
[2017-03-12 07:13] LABS: Basophils # 0.1 10*3/uL (0.0-0.2); Basophils % 0.8 % (0.0-0.8); Eosinophils # 0.1 10*3/uL (0.0-0.87); Eosinophils % 1.4 % (0.00-10.9); Hematocrit 36.6 VOL% (35.7-47.0); Hemoglobin 12.4 GM/DL (12.0-16.0); Immature Granulocytes % 0.4 %; Immature Granulocytes Absolute 0.03 #; Lymphocytes # 1.5 10*3/uL (1.4-4.0); Lymphocytes % 18.6 % (21.3-54.2); Mean Corpuscular HGB Conc 33.9 GM/DL (32-36); Mean Corpuscular Hemoglobin 33 PG (27-34); Mean Corpuscular Volume 97.6 FL (87-102); Mean Platelet Volume 9.4 FL (9.6-12.0); Monocytes # 0.9 10*3/uL (0.11-0.8); Monocytes % 10.9 % (1.7-12.7); Neutrophils # 5.4 10*3/uL (1.4-7.4); Neutrophils % 67.9 % (38.7-73.9); Platelet Count 188 T/CUMM (130-400); Red Blood Count 3.75 MC/CUMM (3.8-5.5); Red Cell Distribution Width 12.7 % (9.3-17.3); White Blood Count 7.9 T/CUMM (4-12)
[2017-03-12 07:48] LABS: Albumin 2.8 G/DL (3.4-5.0); Bilirubin,Total 0.6 MG/DL (0.2-1.0); Calcium 7.9 MG/DL (8.5-10.1); Osmolality,Calculated 236.6 MOS/KG (273-304); Potassium 4.7 MMOL/L (3.5-5.1); Total Protein 5.6 G/DL (6.4-8.3)
[2017-03-12 08:06] LABS: Free T4 (Free Thyroxine) 1.25 NG/DL (0.76-1.46); Thyroid Stimulating Hormone 8.54 uIU/ml (0.358-3.74)
[2017-03-12] MEDS ORDERED: ENOXAPARIN 40 MG/0.4 ML SYRINGE SUBCUT SCH (09:00)
[2017-03-12] MEDS: PANTOPRAZOLE 40 MG TABLET PO SCH (09:40)
[2017-03-12] MEDS: ONDANSETRON 4 MG/2 ML VIAL IV PRN ×3 (09:53→22:43)
[2017-03-12 10:39] LABS: Apearance,Urine Slightly Hazy (Clear); Bilirubin,Urine Negative (Negative); Blood, Urine Large mg/dL (Negative); Glucose,Urine (UA) Negative (Negative); Ketones,Urine 5 mg/dL (Negative); Mucus,Urine Occasional /LPF (Occasional); Nitrite,Urine Negative (Negative); Protein,Urine Negative; RBC,Urine 45 /HPF (0-4); Urine Specific Gravity 1.044 (1.001-1.035); Urine Urobilinogen < 2.0 EU/DL (0.2-1.0); WBC,Urine 14 /HPF (0-6)
[2017-03-12] MEDS ORDERED: ISOSORBIDE MONONITRATE 30 MG TABLET PO SCH (12:00)
[2017-03-12] MEDS: DABIGATRAN 75 MG CAPSULE PO SCH ×2 (13:34→21:06)
[2017-03-12] MEDS: MULTIVITAMIN (CENTRUM) TABLET PO SCH (13:34)
[2017-03-12] MEDS: GABAPENTIN 100 MG CAPSULE PO SCH ×3 (13:35→21:06)
[2017-03-12] MEDS: ASCORBIC ACID 500 MG TABLET PO SCH (13:35)
[2017-03-12] MEDS: CHOLECALCIFEROL 1,000 UNIT TABLET PO SCH (13:35)
[2017-03-12] MEDS ORDERED: PROCHLORPERAZINE 5 MG TABLET PO PRN (14:46)
[2017-03-12] MEDS: DICLOFENAC 1% GEL 100 GM TUBE TOP SCH ×2 (16:07→21:07)
[2017-03-12] MEDS: MAGNESIUM OXIDE 400 MG TABLET PO SCH ×3 (16:07→21:05)
[2017-03-12] MEDS: MEROPENEM 1,000 MG in SYRINGE 1 EACH IV SCH (16:19)
[2017-03-12] MEDS: LACTOBACILLUS ACIDOPHILUS/BULGARICUS CAPLET PO SCH (21:05)
[2017-03-12] MEDS: TAMSULOSIN 0.4 MG CAPSULE PO SCH (21:06)
[2017-03-12] MEDS: ZINC OXIDE PASTE 113 GM TUBE TOP SCH (21:06)
[2017-03-12] MEDS: TEMAZEPAM 15 MG CAPSULE PO SCH (22:42)
[2017-03-12] MEDS: clonazePAM 0.5 MG TABLET PO PRN (22:43)
[2017-03-12] MEDS: MORPHINE 2 MG/1 ML SYRINGE IV PRN (22:43)
[2017-03-12] MEDS: LIDOCAINE 5% PATCH TRANSDERM SCH (23:33)
[2017-03-13] MEDS: ALBUTEROL/IPRATROPIUM 3 ML NEB RESP TX SCH ×4 (00:39→20:29)
[2017-03-13] MEDS: MEROPENEM 1,000 MG in SYRINGE 1 EACH IV SCH ×2 (02:58→17:15)
[2017-03-13] MEDS: AZITHROMYCIN INJ 500 MG in SODIUM CHLORIDE 0.9% 250 ML IV SCH (03:07)
[2017-03-13] MEDS: ACETAMINOPHEN 325 MG TABLET PO PRN ×2 (03:21→19:33)
[2017-03-13] MEDS: SODIUM CHLORIDE 0.9% 1,000 ML IV SCH ×2 (05:58→19:31)
[2017-03-13] MEDS: DICLOFENAC 1% GEL 100 GM TUBE TOP SCH ×3 (09:00→20:54)
[2017-03-13 09:33] LABS: Basophils % 0.4 % (0.0-0.8); Eosinophils # 0.1 10*3/uL (0.0-0.87); Eosinophils % 0.8 % (0.00-10.9); Hematocrit 36.8 VOL% (35.7-47.0); Hemoglobin 12.7 GM/DL (12.0-16.0); Immature Granulocytes % 0.6 %; Immature Granulocytes Absolute 0.04 #; Lymphocytes # 0.7 10*3/uL (1.4-4.0); Mean Corpuscular HGB Conc 34.5 GM/DL (32-36); Mean Corpuscular Hemoglobin 33 PG (27-34); Mean Corpuscular Volume 96.6 FL (87-102); Mean Platelet Volume 9.3 FL (9.6-12.0); Monocytes # 0.6 10*3/uL (0.11-0.8); Monocytes % 8.2 % (1.7-12.7); Neutrophils # 5.8 10*3/uL (1.4-7.4); Platelet Count 189 T/CUMM (130-400); Red Blood Count 3.81 MC/CUMM (3.8-5.5); Red Cell Distribution Width 12.8 % (9.3-17.3); White Blood Count 7.2 T/CUMM (4-12)
[2017-03-13] MEDS: PANTOPRAZOLE 40 MG TABLET PO SCH ×2 (09:43→20:48)
[2017-03-13] MEDS: LACTOBACILLUS ACIDOPHILUS/BULGARICUS CAPLET PO SCH ×2 (09:44→20:47)
[2017-03-13] MEDS: CHOLECALCIFEROL 1,000 UNIT TABLET PO SCH ×2 (09:44→10:12)
[2017-03-13] MEDS: GABAPENTIN 100 MG CAPSULE PO SCH ×4 (09:44→20:51)
[2017-03-13] MEDS: ASCORBIC ACID 500 MG TABLET PO SCH ×2 (09:44→10:12)
[2017-03-13] MEDS: ZINC OXIDE PASTE 113 GM TUBE TOP SCH ×2 (09:45→20:54)
[2017-03-13] MEDS: MULTIVITAMIN (CENTRUM) TABLET PO SCH ×2 (09:45→10:01)
[2017-03-13] MEDS: MAGNESIUM OXIDE 400 MG TABLET PO SCH (09:45)
[2017-03-13] MEDS: DABIGATRAN 75 MG CAPSULE PO SCH ×2 (09:58→20:46)
[2017-03-13 10:00] LABS: Calcium 7.9 MG/DL (8.5-10.1); Osmolality,Calculated 246.8 MOS/KG (273-304); Potassium 4.6 MMOL/L (3.5-5.1)
[2017-03-13] MEDS: ONDANSETRON 4 MG/2 ML VIAL IV PRN (10:12)
[2017-03-13] MEDS: DIPHENOXYLATE/ATROPINE 2.5-0.025 MG TABLET PO PRN ×2 (13:16→17:27)
[2017-03-13] MEDS: FLUTICASONE 50 MCG NASAL SPRAY 16 GM BOTTLE BOTH NARES SCH (13:19)
[2017-03-13] MEDS: MORPHINE 2 MG/1 ML SYRINGE IV PRN ×2 (18:00→21:48)
[2017-03-13] MEDS: CHOLESTYRAMINE/ASPARTAME 4 GM PACK PO SCH (18:07)
[2017-03-13] MEDS: TEMAZEPAM 15 MG CAPSULE PO SCH (20:50)
[2017-03-13] MEDS: TAMSULOSIN 0.4 MG CAPSULE PO SCH (20:51)
[2017-03-13] MEDS: LIDOCAINE 5% PATCH TRANSDERM SCH (20:53)
[2017-03-13] MEDS ORDERED: PHENAZOPYRIDINE 95 MG TABLET PO ONE (21:00)
[2017-03-13] MEDS: clonazePAM 0.5 MG TABLET PO PRN (21:52)
[2017-03-14] MEDS: ALBUTEROL/IPRATROPIUM 3 ML NEB RESP TX SCH ×5 (01:36→17:59)
[2017-03-14] MEDS: MEROPENEM 1,000 MG in SYRINGE 1 EACH IV SCH ×3 (03:16→15:28)
[2017-03-14 05:43] LABS: Basophils % 0.3 % (0.0-0.8); Eosinophils # 0.1 10*3/uL (0.0-0.87); Eosinophils % 1.5 % (0.00-10.9); Hemoglobin 12.6 GM/DL (12.0-16.0); Immature Granulocytes % 0.7 %; Immature Granulocytes Absolute 0.07 #; Lymphocytes # 1.1 10*3/uL (1.4-4.0); Lymphocytes % 11.5 % (21.3-54.2); Mean Corpuscular HGB Conc 33.2 GM/DL (32-36); Mean Corpuscular Hemoglobin 33 PG (27-34); Mean Corpuscular Volume 98.7 FL (87-102); Mean Platelet Volume 9.2 FL (9.6-12.0); Monocytes # 1.2 10*3/uL (0.11-0.8); Monocytes % 12.4 % (1.7-12.7); Neutrophils # 6.9 10*3/uL (1.4-7.4); Neutrophils % 73.6 % (38.7-73.9); Platelet Count 188 T/CUMM (130-400); Red Blood Count 3.85 MC/CUMM (3.8-5.5); Red Cell Distribution Width 12.8 % (9.3-17.3); White Blood Count 9.4 T/CUMM (4-12)
[2017-03-14 06:16] LABS: Calcium 8.2 MG/DL (8.5-10.1); Magnesium 2.5 MG/DL (1.8-2.4); Osmolality,Calculated 243.9 MOS/KG (273-304); Potassium 4.7 MMOL/L (3.5-5.1)
[2017-03-14] MEDS: CHOLESTYRAMINE/ASPARTAME 4 GM PACK PO SCH ×2 (08:30→17:04)
[2017-03-14] MEDS: PANTOPRAZOLE 40 MG TABLET PO SCH ×2 (08:32→21:13)
[2017-03-14] MEDS: MULTIVITAMIN (CENTRUM) TABLET PO SCH (08:32)
[2017-03-14] MEDS: GABAPENTIN 100 MG CAPSULE PO SCH ×4 (08:32→21:13)
[2017-03-14] MEDS: DABIGATRAN 75 MG CAPSULE PO SCH ×2 (08:32→21:13)
[2017-03-14] MEDS: LACTOBACILLUS ACIDOPHILUS/BULGARICUS CAPLET PO SCH ×2 (08:32→21:13)
[2017-03-14] MEDS: CHOLECALCIFEROL 1,000 UNIT TABLET PO SCH (08:33)
[2017-03-14] MEDS: DICLOFENAC 1% GEL 100 GM TUBE TOP SCH ×3 (08:33→21:14)
[2017-03-14] MEDS: FLUTICASONE 50 MCG NASAL SPRAY 16 GM BOTTLE BOTH NARES SCH (08:33)
[2017-03-14] MEDS: ASCORBIC ACID 500 MG TABLET PO SCH (08:33)
[2017-03-14] MEDS: ZINC OXIDE PASTE 113 GM TUBE TOP SCH ×2 (11:03→21:14)
[2017-03-14] MEDS: CYPROHEPTADINE 4 MG TABLET PO SCH ×2 (14:48→21:14)
[2017-03-14] MEDS ORDERED: FUROSEMIDE 40 MG/4 ML VIAL IV SCH (15:00)
[2017-03-14] MEDS: SODIUM CHLORIDE 1 GM TABLET PO SCH ×2 (17:00→21:13)
[2017-03-14] MEDS: clonazePAM 0.5 MG TABLET PO PRN (17:12)
[2017-03-14] MEDS ORDERED: FUROSEMIDE 100 MG/10 ML VIAL ONE (18:23)
[2017-03-14 18:26] LABS: ABG Base Excess 1.9 MMOL/L (-2.5-2.5); ABG HCO3 30.2 MMOL/L (20-26); ABG Oxygen Saturation 94.4 % (95-100); ABG PCO2 64.8 MM HG (35-48); ABG PH 7.287 (7.35-7.45); ABG PO2 70.6 MM HG (80-95); ABG TCO2 32.2 MMOL/L (23-27)
[2017-03-14] MEDS ORDERED: FUROSEMIDE 100 MG/10 ML VIAL IV ONE (18:29)
[2017-03-14] MEDS ORDERED: VANCOMYCIN INJ 1,250 MG in SODIUM CHLORIDE 0.45% 250 ML IV SCH (20:30)
[2017-03-14] MEDS: MORPHINE 2 MG/1 ML SYRINGE IV PRN (21:11)
[2017-03-14] MEDS: LIDOCAINE 5% PATCH TRANSDERM SCH (21:11)
[2017-03-14] MEDS: MIRTAZAPINE 30 MG TABLET PO SCH (21:13)
[2017-03-14] MEDS: TEMAZEPAM 15 MG CAPSULE PO SCH (21:13)
[2017-03-14] MEDS: TAMSULOSIN 0.4 MG CAPSULE PO SCH (21:13)
[2017-03-15] MEDS: ALBUTEROL/IPRATROPIUM 3 ML NEB RESP TX SCH ×4 (00:14→19:46)
[2017-03-15] MEDS: MORPHINE 2 MG/1 ML SYRINGE IV PRN ×2 (01:20→18:18)
[2017-03-15] MEDS: MEROPENEM 1,000 MG in SYRINGE 1 EACH IV SCH ×2 (03:36→16:22)
[2017-03-15 06:20] LABS: Basophils % 0.3 % (0.0-0.8); Eosinophils # 0.2 10*3/uL (0.0-0.87); Eosinophils % 1.3 % (0.00-10.9); Hemoglobin 13.4 GM/DL (12.0-16.0); Immature Granulocytes % 0.7 %; Immature Granulocytes Absolute 0.08 #; Lymphocytes # 0.7 10*3/uL (1.4-4.0); Lymphocytes % 5.7 % (21.3-54.2); Mean Corpuscular HGB Conc 35.3 GM/DL (32-36); Mean Corpuscular Hemoglobin 34 PG (27-34); Mean Corpuscular Volume 96.4 FL (87-102); Mean Platelet Volume 8.9 FL (9.6-12.0); Monocytes # 1.1 10*3/uL (0.11-0.8); Monocytes % 9.4 % (1.7-12.7); Neutrophils # 9.4 10*3/uL (1.4-7.4); Neutrophils % 82.6 % (38.7-73.9); Platelet Count 192 T/CUMM (130-400); Red Blood Count 3.94 MC/CUMM (3.8-5.5); Red Cell Distribution Width 12.8 % (9.3-17.3); White Blood Count 11.4 T/CUMM (4-12)
[2017-03-15 06:56] LABS: Calcium 8.3 MG/DL (8.5-10.1); Osmolality,Calculated 243.8 MOS/KG (273-304); Potassium 5.1 MMOL/L (3.5-5.1)
[2017-03-15] MEDS: CYPROHEPTADINE 4 MG TABLET PO SCH ×3 (08:49→22:34)
[2017-03-15] MEDS: PANTOPRAZOLE 40 MG TABLET PO SCH ×2 (08:49→22:34)
[2017-03-15] MEDS: LACTOBACILLUS ACIDOPHILUS/BULGARICUS CAPLET PO SCH ×2 (08:49→22:34)
[2017-03-15] MEDS: MULTIVITAMIN (CENTRUM) TABLET PO SCH (08:49)
[2017-03-15] MEDS: DABIGATRAN 75 MG CAPSULE PO SCH ×2 (08:49→22:34)
[2017-03-15] MEDS: GABAPENTIN 100 MG CAPSULE PO SCH ×4 (08:49→22:34)
[2017-03-15] MEDS: ASCORBIC ACID 500 MG TABLET PO SCH (08:49)
[2017-03-15] MEDS: SODIUM CHLORIDE 1 GM TABLET PO SCH ×2 (08:50→22:35)
[2017-03-15] MEDS: CHOLECALCIFEROL 1,000 UNIT TABLET PO SCH (08:50)
[2017-03-15] MEDS: CHOLESTYRAMINE/ASPARTAME 4 GM PACK PO SCH ×2 (08:50→17:37)
[2017-03-15] MEDS: ZINC OXIDE PASTE 113 GM TUBE TOP SCH ×2 (09:10→22:34)
[2017-03-15] MEDS: DICLOFENAC 1% GEL 100 GM TUBE TOP SCH ×3 (09:11→22:17)
[2017-03-15] MEDS: FLUTICASONE 50 MCG NASAL SPRAY 16 GM BOTTLE BOTH NARES SCH (09:11)
[2017-03-15] MEDS: FUROSEMIDE 40 MG/4 ML VIAL IV SCH ×2 (09:26→16:27)
[2017-03-15] MEDS: VANCOMYCIN INJ 1,250 MG in SODIUM CHLORIDE 0.45% 250 ML IV SCH ×3 (09:49→22:26)
[2017-03-15] MEDS: methylPREDNISolone SOD SUC 40 MG/1 ML VIAL IV SCH ×2 (11:25→16:30)
[2017-03-15] MEDS: AZITHROMYCIN INJ 500 MG in SODIUM CHLORIDE 0.9% 250 ML IV SCH (13:52)
[2017-03-15] MEDS: LIDOCAINE 5% PATCH TRANSDERM SCH (22:17)
[2017-03-15] MEDS: TAMSULOSIN 0.4 MG CAPSULE PO SCH (22:34)
[2017-03-15] MEDS: MIRTAZAPINE 30 MG TABLET PO SCH (22:34)
[2017-03-15] MEDS: TEMAZEPAM 15 MG CAPSULE PO SCH (22:34)
[2017-03-16] MEDS: ALBUTEROL/IPRATROPIUM 3 ML NEB RESP TX SCH ×5 (00:38→19:40)
[2017-03-16] MEDS: MORPHINE 2 MG/1 ML SYRINGE IV PRN (00:59)
[2017-03-16] MEDS: methylPREDNISolone SOD SUC 40 MG/1 ML VIAL IV SCH ×3 (00:59→19:02)
[2017-03-16] MEDS: MEROPENEM 1,000 MG in SYRINGE 1 EACH IV SCH ×2 (03:13→16:58)
[2017-03-16 10:04] LABS: Basophils % 0.1 % (0.0-0.8); Hematocrit 42.9 VOL% (35.7-47.0); Hemoglobin 14.5 GM/DL (12.0-16.0); Immature Granulocytes % 0.4 %; Immature Granulocytes Absolute 0.04 #; Lymphocytes # 0.5 10*3/uL (1.4-4.0); Lymphocytes % 4.6 % (21.3-54.2); Mean Corpuscular HGB Conc 33.8 GM/DL (32-36); Mean Corpuscular Hemoglobin 33 PG (27-34); Mean Corpuscular Volume 96.2 FL (87-102); Mean Platelet Volume 8.7 FL (9.6-12.0); Monocytes # 0.6 10*3/uL (0.11-0.8); Monocytes % 6.2 % (1.7-12.7); Neutrophils # 8.6 10*3/uL (1.4-7.4); Neutrophils % 88.7 % (38.7-73.9); Platelet Count 225 T/CUMM (130-400); Red Blood Count 4.46 MC/CUMM (3.8-5.5); Red Cell Distribution Width 12.8 % (9.3-17.3); White Blood Count 9.7 T/CUMM (4-12)
[2017-03-16 10:32] LABS: Calcium 8.3 MG/DL (8.5-10.1); Osmolality,Calculated 255.2 MOS/KG (273-304); Potassium 4.5 MMOL/L (3.5-5.1)
[2017-03-16 10:40] LABS: Hypochromasia 2+; Lymphocytes 5 % (20-55); Platelet Estimate Normal; Segmented Neutrophils 92 % (50-85); Total Cells Counted 100
[2017-03-16 13:26] LABS: ABG Base Excess 8.2 MMOL/L (-2.5-2.5); ABG HCO3 34.6 MMOL/L (20-26); ABG Oxygen Saturation 94.9 % (95-100); ABG PCO2 54.4 MM HG (35-48); ABG PH 7.421 (7.35-7.45); ABG TCO2 36.2 MMOL/L (23-27)
[2017-03-16] MEDS: VANCOMYCIN INJ 1,250 MG in SODIUM CHLORIDE 0.45% 250 ML IV SCH (13:48)
[2017-03-16] MEDS: FUROSEMIDE 40 MG/4 ML VIAL IV SCH ×2 (13:48→19:03)
[2017-03-16] MEDS: SODIUM CHLORIDE 1 GM TABLET PO SCH ×2 (13:49→21:56)
[2017-03-16] MEDS: LACTOBACILLUS ACIDOPHILUS/BULGARICUS CAPLET PO SCH ×2 (13:49→21:55)
[2017-03-16] MEDS: ASCORBIC ACID 500 MG TABLET PO SCH (13:50)
[2017-03-16] MEDS: CYPROHEPTADINE 4 MG TABLET PO SCH ×3 (13:50→21:55)
[2017-03-16] MEDS: CHOLECALCIFEROL 1,000 UNIT TABLET PO SCH (13:50)
[2017-03-16] MEDS: MULTIVITAMIN (CENTRUM) TABLET PO SCH (13:50)
[2017-03-16] MEDS: GABAPENTIN 100 MG CAPSULE PO SCH ×4 (13:50→21:56)
[2017-03-16] MEDS: clonazePAM 0.5 MG TABLET PO PRN (13:50)
[2017-03-16] MEDS: FLUTICASONE 50 MCG NASAL SPRAY 16 GM BOTTLE BOTH NARES SCH (13:51)
[2017-03-16] MEDS: PANTOPRAZOLE 40 MG TABLET PO SCH ×2 (13:51→21:57)
[2017-03-16] MEDS: CHOLESTYRAMINE/ASPARTAME 4 GM PACK PO SCH (13:51)
[2017-03-16] MEDS: ZINC OXIDE PASTE 113 GM TUBE TOP SCH ×2 (13:51→21:59)
[2017-03-16] MEDS: DICLOFENAC 1% GEL 100 GM TUBE TOP SCH ×3 (13:51→21:57)
[2017-03-16] MEDS: DABIGATRAN 75 MG CAPSULE PO SCH ×2 (13:51→21:55)
[2017-03-16] MEDS: AZITHROMYCIN INJ 500 MG in SODIUM CHLORIDE 0.9% 250 ML IV SCH (15:27)
[2017-03-16] MEDS ORDERED: DIGOXIN 0.5 MG/2 ML AMP IV ONE (16:18)
[2017-03-16] MEDS ORDERED: DIGOXIN 0.125 MG TABLET PO ONE (18:58)
[2017-03-16 19:46] LABS: ABG Base Excess 4.1 MMOL/L (-2.5-2.5); ABG HCO3 27.9 MMOL/L (20-26); ABG Oxygen Saturation 92.7 % (95-100); ABG PCO2 68.3 MM HG (35-48); ABG PO2 71.6 MM HG (80-95)
[2017-03-16] MEDS ORDERED: metOLazone 5 MG TABLET PO ONE (21:00)
[2017-03-16] MEDS: MIRTAZAPINE 30 MG TABLET PO SCH (21:55)
[2017-03-16] MEDS: FLECAINIDE 50 MG TABLET PO SCH (21:56)
[2017-03-16] MEDS: TEMAZEPAM 15 MG CAPSULE PO SCH (21:57)
[2017-03-16] MEDS: TAMSULOSIN 0.4 MG CAPSULE PO SCH (21:57)
[2017-03-16] MEDS: LIDOCAINE 5% PATCH TRANSDERM SCH (21:58)
[2017-03-17] MEDS: ALBUTEROL/IPRATROPIUM 3 ML NEB RESP TX SCH ×4 (01:34→20:07)
[2017-03-17] MEDS: methylPREDNISolone SOD SUC 40 MG/1 ML VIAL IV SCH ×3 (02:15→17:30)
[2017-03-17] MEDS: VANCOMYCIN INJ 1,250 MG in SODIUM CHLORIDE 0.45% 250 ML IV SCH ×2 (02:17→14:01)
[2017-03-17] MEDS: DIGOXIN 0.5 MG/2 ML AMP IV ONE ×2 (02:17→02:35)
[2017-03-17] MEDS: clonazePAM 0.5 MG TABLET PO PRN (02:41)
[2017-03-17] MEDS: MEROPENEM 1,000 MG in SYRINGE 1 EACH IV SCH ×2 (04:07→15:44)
[2017-03-17 04:15] LABS: Basophils % 0.1 % (0.0-0.8); Hematocrit 39.6 VOL% (35.7-47.0); Hemoglobin 13.5 GM/DL (12.0-16.0); Immature Granulocytes % 0.4 %; Immature Granulocytes Absolute 0.04 #; Lymphocytes # 0.4 10*3/uL (1.4-4.0); Lymphocytes % 4.4 % (21.3-54.2); Mean Corpuscular HGB Conc 34.1 GM/DL (32-36); Mean Corpuscular Hemoglobin 33 PG (27-34); Mean Corpuscular Volume 96.4 FL (87-102); Monocytes # 0.8 10*3/uL (0.11-0.8); Monocytes % 8.2 % (1.7-12.7); Neutrophils % 86.9 % (38.7-73.9); Platelet Count 179 T/CUMM (130-400); Red Blood Count 4.11 MC/CUMM (3.8-5.5); Red Cell Distribution Width 12.7 % (9.3-17.3); White Blood Count 9.2 T/CUMM (4-12)
[2017-03-17 04:42] LABS: Calcium 8.4 MG/DL (8.5-10.1); Magnesium 1.6 MG/DL (1.8-2.4); Osmolality,Calculated 252.5 MOS/KG (273-304); Potassium 3.9 MMOL/L (3.5-5.1)
[2017-03-17 04:54] LABS: Lymphocytes 4 % (20-55); Platelet Estimate Adequate; Segmented Neutrophils 92 % (50-85); Total Cells Counted 100
[2017-03-17] MEDS: FUROSEMIDE 40 MG/4 ML VIAL IV SCH ×2 (08:30→15:44)
[2017-03-17] MEDS: CYPROHEPTADINE 4 MG TABLET PO SCH (09:08)
[2017-03-17] MEDS: LACTOBACILLUS ACIDOPHILUS/BULGARICUS CAPLET PO SCH ×2 (09:08→22:15)
[2017-03-17] MEDS: MULTIVITAMIN (CENTRUM) TABLET PO SCH (09:08)
[2017-03-17] MEDS: SODIUM CHLORIDE 1 GM TABLET PO SCH ×2 (09:08→22:16)
[2017-03-17] MEDS: CHOLESTYRAMINE/ASPARTAME 4 GM PACK PO SCH (09:08)
[2017-03-17] MEDS: FLECAINIDE 50 MG TABLET PO SCH ×2 (09:09→22:17)
[2017-03-17] MEDS: CHOLECALCIFEROL 1,000 UNIT TABLET PO SCH (09:09)
[2017-03-17] MEDS: DABIGATRAN 75 MG CAPSULE PO SCH ×2 (09:09→22:17)
[2017-03-17] MEDS: ASCORBIC ACID 500 MG TABLET PO SCH (09:09)
[2017-03-17] MEDS: metOLazone 5 MG TABLET PO SCH (09:09)
[2017-03-17] MEDS: GABAPENTIN 100 MG CAPSULE PO SCH ×4 (09:09→22:16)
[2017-03-17] MEDS: ZINC OXIDE PASTE 113 GM TUBE TOP SCH ×2 (09:10→22:18)
[2017-03-17] MEDS: DICLOFENAC 1% GEL 100 GM TUBE TOP SCH ×3 (09:10→22:18)
[2017-03-17] MEDS: FLUTICASONE 50 MCG NASAL SPRAY 16 GM BOTTLE BOTH NARES SCH (09:10)
[2017-03-17] MEDS: PANTOPRAZOLE 40 MG TABLET PO SCH ×2 (09:10→22:16)
[2017-03-17] MEDS: AZITHROMYCIN INJ 500 MG in SODIUM CHLORIDE 0.9% 250 ML IV SCH (13:25)
[2017-03-17] MEDS: DIGOXIN 0.25 MG TABLET PO SCH (13:27)
[2017-03-17] MEDS: MIRTAZAPINE 30 MG TABLET PO SCH (22:14)
[2017-03-17] MEDS: PHENOL 1.4% THROAT SPRAY 177 ML BOTTLE PO PRN (22:15)
[2017-03-17] MEDS: TEMAZEPAM 15 MG CAPSULE PO SCH (22:16)
[2017-03-17] MEDS: LIDOCAINE 5% PATCH TRANSDERM SCH (22:17)
[2017-03-17] MEDS: TAMSULOSIN 0.4 MG CAPSULE PO SCH (22:17)
[2017-03-18] MEDS: MORPHINE 2 MG/1 ML SYRINGE IV PRN ×2 (00:41→22:36)
[2017-03-18] MEDS: ALBUTEROL/IPRATROPIUM 3 ML NEB RESP TX SCH ×5 (00:49→23:58)
[2017-03-18] MEDS: methylPREDNISolone SOD SUC 40 MG/1 ML VIAL IV SCH ×3 (02:18→18:58)
[2017-03-18] MEDS: PHENOL 1.4% THROAT SPRAY 177 ML BOTTLE PO PRN (02:26)
[2017-03-18] MEDS: MEROPENEM 1,000 MG in SYRINGE 1 EACH IV SCH ×2 (02:30→15:29)
[2017-03-18 06:02] LABS: Basophils % 0.1 % (0.0-0.8); Hematocrit 38.9 VOL% (35.7-47.0); Hemoglobin 13.4 GM/DL (12.0-16.0); Immature Granulocytes % 0.4 %; Immature Granulocytes Absolute 0.04 #; Lymphocytes # 0.5 10*3/uL (1.4-4.0); Lymphocytes % 4.1 % (21.3-54.2); Mean Corpuscular HGB Conc 34.4 GM/DL (32-36); Mean Corpuscular Hemoglobin 33 PG (27-34); Mean Corpuscular Volume 94.6 FL (87-102); Mean Platelet Volume 8.8 FL (9.6-12.0); Monocytes # 0.8 10*3/uL (0.11-0.8); Monocytes % 7.5 % (1.7-12.7); Neutrophils # 9.8 10*3/uL (1.4-7.4); Neutrophils % 87.9 % (38.7-73.9); Platelet Count 175 T/CUMM (130-400); Red Blood Count 4.11 MC/CUMM (3.8-5.5); Red Cell Distribution Width 12.5 % (9.3-17.3); White Blood Count 11.2 T/CUMM (4-12)
[2017-03-18 06:22] LABS: Hypochromasia 1+; Lymphocytes 6 % (20-55); Platelet Estimate Normal; Segmented Neutrophils 86 % (50-85); Total Cells Counted 100
[2017-03-18 06:23] LABS: Giant Platelets Few
[2017-03-18 06:38] LABS: Magnesium 1.6 MG/DL (1.8-2.4); Osmolality,Calculated 251.6 MOS/KG (273-304); Potassium 3.9 MMOL/L (3.5-5.1)
[2017-03-18] MEDS: CHOLESTYRAMINE/ASPARTAME 4 GM PACK PO SCH (09:54)
[2017-03-18] MEDS: LACTOBACILLUS ACIDOPHILUS/BULGARICUS CAPLET PO SCH ×2 (09:55→22:30)
[2017-03-18] MEDS: DABIGATRAN 75 MG CAPSULE PO SCH ×2 (09:55→22:31)
[2017-03-18] MEDS: SODIUM CHLORIDE 1 GM TABLET PO SCH ×2 (09:55→22:32)
[2017-03-18] MEDS: metOLazone 5 MG TABLET PO SCH (09:55)
[2017-03-18] MEDS: MULTIVITAMIN (CENTRUM) TABLET PO SCH (09:55)
[2017-03-18] MEDS: ASCORBIC ACID 500 MG TABLET PO SCH (09:55)
[2017-03-18] MEDS: FLECAINIDE 50 MG TABLET PO SCH ×2 (09:55→22:30)
[2017-03-18] MEDS: PANTOPRAZOLE 40 MG TABLET PO SCH ×2 (09:55→22:31)
[2017-03-18] MEDS: CHOLECALCIFEROL 1,000 UNIT TABLET PO SCH (09:55)
[2017-03-18] MEDS: DICLOFENAC 1% GEL 100 GM TUBE TOP SCH ×3 (09:56→22:37)
[2017-03-18] MEDS: GABAPENTIN 100 MG CAPSULE PO SCH ×4 (09:56→22:31)
[2017-03-18] MEDS: FLUTICASONE 50 MCG NASAL SPRAY 16 GM BOTTLE BOTH NARES SCH ×2 (09:57→22:38)
[2017-03-18] MEDS: ZINC OXIDE PASTE 113 GM TUBE TOP SCH ×2 (09:57→22:32)
[2017-03-18] MEDS: FUROSEMIDE 40 MG/4 ML VIAL IV SCH ×2 (11:38→18:54)
[2017-03-18] MEDS: DIGOXIN 0.25 MG TABLET PO SCH (13:25)
[2017-03-18] MEDS: AZITHROMYCIN INJ 500 MG in SODIUM CHLORIDE 0.9% 250 ML IV SCH (13:31)
[2017-03-18] MEDS: VANCOMYCIN INJ 1,000 MG in SODIUM CHLORIDE 0.9% 250 ML IV SCH (15:35)
[2017-03-18] MEDS: ONDANSETRON 4 MG/2 ML VIAL IV PRN (16:49)
[2017-03-18] MEDS: LIDOCAINE 5% PATCH TRANSDERM SCH (22:28)
[2017-03-18] MEDS: MIRTAZAPINE 30 MG TABLET PO SCH (22:30)
[2017-03-18] MEDS: TEMAZEPAM 15 MG CAPSULE PO SCH (22:30)
[2017-03-18] MEDS: clonazePAM 0.5 MG TABLET PO PRN (22:31)
[2017-03-18] MEDS: TAMSULOSIN 0.4 MG CAPSULE PO SCH (22:32)
[2017-03-19] MEDS: methylPREDNISolone SOD SUC 40 MG/1 ML VIAL IV SCH ×3 (00:38→19:03)
[2017-03-19 00:59] LABS: Allen Test Positive; Pt O2 Delivery Device BIPAP
[2017-03-19 01:00] LABS: ABG Base Excess 18.2 MMOL/L (-2.5-2.5); ABG HCO3 46.5 MMOL/L (20-26); ABG Oxygen Saturation 95.5 % (95-100); ABG TCO2 48.6 MMOL/L (23-27)
[2017-03-19] MEDS ORDERED: FUROSEMIDE 40 MG/4 ML VIAL IV ONE (01:15)
[2017-03-19] MEDS ORDERED: MORPHINE 2 MG/1 ML SYRINGE IV ONE (01:17)
[2017-03-19] MEDS: MEROPENEM 1,000 MG in SYRINGE 1 EACH IV SCH ×2 (03:58→19:02)
[2017-03-19 05:47] LABS: Hematocrit 38.3 VOL% (35.7-47.0); Hemoglobin 13.2 GM/DL (12.0-16.0); Immature Granulocytes % 0.4 %; Immature Granulocytes Absolute 0.03 #; Lymphocytes # 0.4 10*3/uL (1.4-4.0); Lymphocytes % 5.2 % (21.3-54.2); Mean Corpuscular HGB Conc 34.5 GM/DL (32-36); Mean Corpuscular Hemoglobin 32 PG (27-34); Mean Corpuscular Volume 93.4 FL (87-102); Mean Platelet Volume 9.1 FL (9.6-12.0); Monocytes # 0.6 10*3/uL (0.11-0.8); Monocytes % 8.1 % (1.7-12.7); Neutrophils # 6.5 10*3/uL (1.4-7.4); Neutrophils % 86.3 % (38.7-73.9); Platelet Count 175 T/CUMM (130-400); Red Cell Distribution Width 12.4 % (9.3-17.3); White Blood Count 7.6 T/CUMM (4-12)
[2017-03-19 06:49] LABS: Blood Urea Nitrogen 32 MG/DL (7-18); Calcium 7.9 MG/DL (8.5-10.1); Glucose 129 MG/DL (74-106); Magnesium 1.7 MG/DL (1.8-2.4); Osmolality,Calculated 265.1 MOS/KG (273-304); Potassium 3.5 MMOL/L (3.5-5.1); Sodium 128 MMOL/L (136-145)
[2017-03-19] MEDS: ALBUTEROL/IPRATROPIUM 3 ML NEB RESP TX SCH ×3 (07:12→20:36)
[2017-03-19] MEDS: FUROSEMIDE 40 MG/4 ML VIAL IV SCH (08:02)
[2017-03-19] MEDS: MORPHINE 2 MG/1 ML SYRINGE IV PRN (08:12)
[2017-03-19] MEDS ORDERED: LIDOCAINE 1% 20 ML VIAL MISC INJ ONE (08:13)
[2017-03-19] MEDS ORDERED: OXYMETAZOLINE 0.05% NASAL SPRAY 15 ML BOTTLE BOTH NARES PRN (08:44)
[2017-03-19] MEDS ORDERED: FUROSEMIDE 40 MG/4 ML VIAL IV SCH (09:00)
[2017-03-19] MEDS: SODIUM CHLORIDE 1 GM TABLET PO SCH ×2 (11:33→22:14)
[2017-03-19] MEDS: DABIGATRAN 75 MG CAPSULE PO SCH ×2 (11:33→22:12)
[2017-03-19] MEDS: GABAPENTIN 100 MG CAPSULE PO SCH ×4 (11:33→22:13)
[2017-03-19] MEDS: CHOLECALCIFEROL 1,000 UNIT TABLET PO SCH (11:33)
[2017-03-19] MEDS: LACTOBACILLUS ACIDOPHILUS/BULGARICUS CAPLET PO SCH ×2 (11:33→22:13)
[2017-03-19] MEDS: FLECAINIDE 50 MG TABLET PO SCH ×2 (11:34→22:12)
[2017-03-19] MEDS: MULTIVITAMIN (CENTRUM) TABLET PO SCH (11:34)
[2017-03-19] MEDS: metOLazone 5 MG TABLET PO SCH (11:34)
[2017-03-19] MEDS: ASCORBIC ACID 500 MG TABLET PO SCH (11:34)
[2017-03-19] MEDS: FLUTICASONE 50 MCG NASAL SPRAY 16 GM BOTTLE BOTH NARES SCH ×2 (11:35→22:18)
[2017-03-19] MEDS: PANTOPRAZOLE 40 MG TABLET PO SCH ×2 (11:35→22:13)
[2017-03-19] MEDS: CHOLESTYRAMINE/ASPARTAME 4 GM PACK PO SCH (11:35)
[2017-03-19] MEDS: DICLOFENAC 1% GEL 100 GM TUBE TOP SCH ×3 (11:36→22:14)
[2017-03-19] MEDS: AZITHROMYCIN INJ 500 MG in SODIUM CHLORIDE 0.9% 250 ML IV SCH (12:07)
[2017-03-19] MEDS: VANCOMYCIN INJ 1,000 MG in SODIUM CHLORIDE 0.9% 250 ML IV SCH (14:51)
[2017-03-19] MEDS: ZINC OXIDE PASTE 113 GM TUBE TOP SCH ×2 (15:17→22:19)
[2017-03-19] MEDS: DIGOXIN 0.25 MG TABLET PO SCH (15:18)
[2017-03-19] MEDS: MIRTAZAPINE 30 MG TABLET PO SCH (22:12)
[2017-03-19] MEDS: TEMAZEPAM 15 MG CAPSULE PO SCH (22:14)
[2017-03-19] MEDS: TAMSULOSIN 0.4 MG CAPSULE PO SCH (22:14)
[2017-03-19] MEDS: LIDOCAINE 5% PATCH TRANSDERM SCH (22:16)
[2017-03-19] MEDS ORDERED: diphenhydrAMINE CAP 25 MG CAPSULE PO ONE (23:20)
[2017-03-19] MEDS ORDERED: diphenhydrAMINE CAP 25 MG CAPSULE ONE (23:22)
[2017-03-20] MEDS: ALBUTEROL/IPRATROPIUM 3 ML NEB RESP TX SCH ×4 (00:47→20:51)
[2017-03-20] MEDS: methylPREDNISolone SOD SUC 40 MG/1 ML VIAL IV SCH ×3 (02:29→18:48)
[2017-03-20] MEDS: MEROPENEM 1,000 MG in SYRINGE 1 EACH IV SCH ×2 (02:38→16:26)
[2017-03-20 05:58] LABS: Basophils % 0.1 % (0.0-0.8); Hematocrit 45.6 VOL% (35.7-47.0); Hemoglobin 15.3 GM/DL (12.0-16.0); Immature Granulocytes % 0.7 %; Immature Granulocytes Absolute 0.07 #; Lymphocytes # 0.4 10*3/uL (1.4-4.0); Mean Corpuscular HGB Conc 33.6 GM/DL (32-36); Mean Corpuscular Hemoglobin 33 PG (27-34); Mean Corpuscular Volume 97.9 FL (87-102); Monocytes # 0.8 10*3/uL (0.11-0.8); Monocytes % 7.3 % (1.7-12.7); Neutrophils % 87.9 % (38.7-73.9); Platelet Count 182 T/CUMM (130-400); Red Blood Count 4.66 MC/CUMM (3.8-5.5); Red Cell Distribution Width 12.7 % (9.3-17.3); White Blood Count 10.2 T/CUMM (4-12)
[2017-03-20 06:23] LABS: Calcium 8.9 MG/DL (8.5-10.1); Osmolality,Calculated 266.2 MOS/KG (273-304); Potassium 3.4 MMOL/L (3.5-5.1)
[2017-03-20 06:29] LABS: Calcium 8.8 MG/DL (8.5-10.1); Magnesium 1.9 MG/DL (1.8-2.4); Osmolality,Calculated 265.2 MOS/KG (273-304); Potassium 3.5 MMOL/L (3.5-5.1)
[2017-03-20 06:55] LABS: Hypochromasia 2+; Lymphocytes 3 % (20-55); Platelet Estimate Adequate; Polychromasia Slight; Segmented Neutrophils 93 % (50-85); Total Cells Counted 100
[2017-03-20] MEDS: FLECAINIDE 50 MG TABLET PO SCH ×2 (10:16→21:32)
[2017-03-20] MEDS: MULTIVITAMIN (CENTRUM) TABLET PO SCH (10:16)
[2017-03-20] MEDS: DABIGATRAN 75 MG CAPSULE PO SCH ×2 (10:16→21:30)
[2017-03-20] MEDS: ASCORBIC ACID 500 MG TABLET PO SCH (10:16)
[2017-03-20] MEDS: PANTOPRAZOLE 40 MG TABLET PO SCH ×2 (10:17→20:51)
[2017-03-20] MEDS: metOLazone 5 MG TABLET PO SCH (10:17)
[2017-03-20] MEDS: CHOLECALCIFEROL 1,000 UNIT TABLET PO SCH (10:17)
[2017-03-20] MEDS: FLUTICASONE 50 MCG NASAL SPRAY 16 GM BOTTLE BOTH NARES SCH ×2 (10:17→21:34)
[2017-03-20] MEDS: GABAPENTIN 100 MG CAPSULE PO SCH ×4 (10:17→21:31)
[2017-03-20] MEDS: CHOLESTYRAMINE/ASPARTAME 4 GM PACK PO SCH (10:18)
[2017-03-20] MEDS: DICLOFENAC 1% GEL 100 GM TUBE TOP SCH ×3 (10:18→21:32)
[2017-03-20] MEDS: ZINC OXIDE PASTE 113 GM TUBE TOP SCH ×2 (10:18→21:33)
[2017-03-20] MEDS: AZITHROMYCIN INJ 500 MG in SODIUM CHLORIDE 0.9% 250 ML IV SCH (13:37)
[2017-03-20] MEDS: SODIUM CHLORIDE 1 GM TABLET PO SCH ×2 (13:44→21:31)
[2017-03-20] MEDS: DIGOXIN 0.25 MG TABLET PO SCH (13:44)
[2017-03-20] MEDS: LACTOBACILLUS ACIDOPHILUS/BULGARICUS CAPLET PO SCH ×2 (13:44→21:31)
[2017-03-20] MEDS: ONDANSETRON 4 MG/2 ML VIAL IV PRN ×2 (16:26→21:28)
[2017-03-20] MEDS: VANCOMYCIN INJ 1,000 MG in SODIUM CHLORIDE 0.9% 250 ML IV SCH (18:47)
[2017-03-20] MEDS: MORPHINE 2 MG/1 ML SYRINGE IV PRN (21:29)
[2017-03-20] MEDS: MIRTAZAPINE 30 MG TABLET PO SCH (21:30)
[2017-03-20] MEDS: TAMSULOSIN 0.4 MG CAPSULE PO SCH (21:32)
[2017-03-20] MEDS: LIDOCAINE 5% PATCH TRANSDERM SCH (21:33)
[2017-03-21] MEDS: ALBUTEROL/IPRATROPIUM 3 ML NEB RESP TX SCH ×4 (01:21→18:26)
[2017-03-21] MEDS: methylPREDNISolone SOD SUC 40 MG/1 ML VIAL IV SCH ×2 (02:21→11:22)
[2017-03-21] MEDS: MEROPENEM 1,000 MG in SYRINGE 1 EACH IV SCH ×2 (04:34→15:35)
[2017-03-21 08:24] LABS: Pt O2 Delivery Device BIPAP
[2017-03-21 08:25] LABS: ABG Base Excess 14.2 MMOL/L (-2.5-2.5); ABG HCO3 38.2 MMOL/L (20-26); ABG Oxygen Saturation 97.9 % (95-100); ABG PH 7.303 (7.35-7.45); ABG TCO2 40.7 MMOL/L (23-27)
[2017-03-21 08:27] LABS: ABG PCO2 93.8 MM HG (35-48)
[2017-03-21 09:39] LABS: Calcium 8.1 MG/DL (8.5-10.1); Osmolality,Calculated 279.8 MOS/KG (273-304); Potassium 4.8 MMOL/L (3.5-5.1)
[2017-03-21 09:53] LABS: Basophils % 0.2 % (0.0-0.8); Hematocrit 42.5 VOL% (35.7-47.0); Hemoglobin 14.1 GM/DL (12.0-16.0); Immature Granulocytes % 1.3 %; Immature Granulocytes Absolute 0.14 #; Lymphocytes # 0.3 10*3/uL (1.4-4.0); Lymphocytes % 2.3 % (21.3-54.2); Mean Corpuscular HGB Conc 33.2 GM/DL (32-36); Mean Corpuscular Hemoglobin 33 PG (27-34); Mean Corpuscular Volume 100.2 FL (87-102); Mean Platelet Volume 9.5 FL (9.6-12.0); Monocytes # 0.7 10*3/uL (0.11-0.8); NRBC # 0.02 10*3/uL; Neutrophils # 10.1 10*3/uL (1.4-7.4); Neutrophils % 90.2 % (38.7-73.9); Platelet Count 155 T/CUMM (130-400); Red Blood Count 4.24 MC/CUMM (3.8-5.5); Red Cell Distribution Width 12.7 % (9.3-17.3); White Blood Count 11.2 T/CUMM (4-12)
[2017-03-21 10:23] LABS: ABG Base Excess 14.9 MMOL/L (-2.5-2.5); ABG HCO3 38.8 MMOL/L (20-26); ABG Oxygen Saturation 96.6 % (95-100); ABG PH 7.274 (7.35-7.45); ABG PO2 91.9 MM HG (80-95); ABG TCO2 42.5 MMOL/L (23-27)
[2017-03-21 10:26] LABS: Hypochromasia 2+; Lymphocytes 5 % (20-55); Platelet Estimate Adequate; Segmented Neutrophils 92 % (50-85); Total Cells Counted 100
[2017-03-21] MEDS: methylPREDNISolone SOD SUC 125 MG/2 ML VIAL IV SCH ×2 (11:22→20:23)
[2017-03-21] MEDS: ZINC OXIDE PASTE 113 GM TUBE TOP SCH ×2 (11:45→22:32)
[2017-03-21 12:04] LABS: Blood Urea Nitrogen 68 MG/DL (7-18); Calcium 8.5 MG/DL (8.5-10.1); Free T4 (Free Thyroxine) 0.84 NG/DL (0.76-1.46); Glucose 123 MG/DL (74-106); Magnesium 2.2 MG/DL (1.8-2.4); Osmolality,Calculated 280.8 MOS/KG (273-304); Potassium 4.3 MMOL/L (3.5-5.1); Sodium 130 MMOL/L (136-145)
[2017-03-21 12:32] LABS: ABG Base Excess 17.8 MMOL/L (-2.5-2.5); ABG HCO3 48.8 MMOL/L (20-26); ABG Oxygen Saturation 74.9 % (95-100); ABG TCO2 51.7 MMOL/L (23-27)
[2017-03-21 12:36] LABS: ABG PCO2 94.7 MM HG (35-48); ABG PO2 35.2 MM HG (80-95)
[2017-03-21] MEDS: AZITHROMYCIN INJ 500 MG in SODIUM CHLORIDE 0.9% 250 ML IV SCH (13:20)
[2017-03-21] MEDS ORDERED: PROPOFOL 1,000 MG/100 ML BOTTLE IV ONE ×2 (13:53→20:00)
[2017-03-21] MEDS ORDERED: SUCCINYLCHOLINE 200 MG/10 ML VIAL ONE (13:53)
[2017-03-21 15:06] LABS: ABG Base Excess 18.1 MMOL/L (-2.5-2.5); ABG HCO3 46.5 MMOL/L (20-26); ABG Oxygen Saturation 99.5 % (95-100); ABG PH 7.419 (7.35-7.45); ABG PO2 395.3 MM HG (80-95); ABG TCO2 48.8 MMOL/L (23-27); Pt O2 Delivery Device Ventilator
[2017-03-21 15:08] LABS: ABG PCO2 73.5 MM HG (35-48)
[2017-03-21] MEDS: VANCOMYCIN INJ 1,000 MG in SODIUM CHLORIDE 0.9% 250 ML IV SCH (15:45)
[2017-03-21] MEDS: MULTIVITAMIN (CENTRUM) TABLET PO SCH (15:46)
[2017-03-21] MEDS: LACTOBACILLUS ACIDOPHILUS/BULGARICUS CAPLET PO SCH ×2 (15:46→22:32)
[2017-03-21] MEDS: FLUTICASONE 50 MCG NASAL SPRAY 16 GM BOTTLE BOTH NARES SCH ×2 (15:46→20:50)
[2017-03-21] MEDS: SODIUM CHLORIDE 1 GM TABLET PO SCH ×2 (15:47→22:10)
[2017-03-21] MEDS: GABAPENTIN 100 MG CAPSULE PO SCH ×4 (15:47→22:33)
[2017-03-21] MEDS: DABIGATRAN 75 MG CAPSULE PO SCH ×2 (15:47→22:33)
[2017-03-21] MEDS: PANTOPRAZOLE 40 MG TABLET PO SCH ×2 (15:47→22:34)
[2017-03-21] MEDS: ASCORBIC ACID 500 MG TABLET PO SCH (15:48)
[2017-03-21] MEDS: CHOLECALCIFEROL 1,000 UNIT TABLET PO SCH (15:48)
[2017-03-21] MEDS: DICLOFENAC 1% GEL 100 GM TUBE TOP SCH ×3 (15:48→22:34)
[2017-03-21] MEDS: metOLazone 5 MG TABLET PO SCH (15:48)
[2017-03-21] MEDS: FLECAINIDE 50 MG TABLET PO SCH ×2 (15:48→22:10)
[2017-03-21] MEDS: DIGOXIN 0.25 MG TABLET PO SCH (15:49)
[2017-03-21] MEDS: CHOLESTYRAMINE/ASPARTAME 4 GM PACK PO SCH (15:52)
[2017-03-21] MEDS: PROPOFOL 1,000 MG/100 ML BOTTLE IV SCH (20:19)
[2017-03-21] MEDS: MIRTAZAPINE 30 MG TABLET PO SCH (22:10)
[2017-03-21] MEDS: LIDOCAINE 5% PATCH TRANSDERM SCH (22:13)
[2017-03-21] MEDS: TAMSULOSIN 0.4 MG CAPSULE PO SCH (22:32)
[2017-03-22] MEDS: ALBUTEROL/IPRATROPIUM 3 ML NEB RESP TX SCH ×4 (02:13→19:23)
[2017-03-22] MEDS: methylPREDNISolone SOD SUC 125 MG/2 ML VIAL IV SCH ×3 (02:49→18:50)
[2017-03-22] MEDS: MEROPENEM 1,000 MG in SYRINGE 1 EACH IV SCH ×2 (03:51→16:19)
[2017-03-22] MEDS: PROPOFOL 1,000 MG/100 ML BOTTLE IV SCH ×3 (04:12→23:21)
[2017-03-22 04:27] LABS: ABG Base Excess 20.4 MMOL/L (-2.5-2.5); ABG HCO3 43.5 MMOL/L (20-26); ABG Oxygen Saturation 98.6 % (95-100); ABG PCO2 42.2 MM HG (35-48); ABG PH 7.631 (7.35-7.45); ABG PO2 115.1 MM HG (80-95); ABG TCO2 44.8 MMOL/L (23-27)
[2017-03-22 05:44] LABS: Basophils % 0.1 % (0.0-0.8); Hematocrit 33.5 VOL% (35.7-47.0); Immature Granulocytes % 0.6 %; Immature Granulocytes Absolute 0.09 #; Lymphocytes # 0.3 10*3/uL (1.4-4.0); Mean Corpuscular HGB Conc 33.7 GM/DL (32-36); Mean Corpuscular Hemoglobin 33 PG (27-34); Mean Platelet Volume 9.3 FL (9.6-12.0); Monocytes # 0.8 10*3/uL (0.11-0.8); Monocytes % 5.4 % (1.7-12.7); Neutrophils # 13.3 10*3/uL (1.4-7.4); Neutrophils % 91.9 % (38.7-73.9); Platelet Count 145 T/CUMM (130-400); Red Blood Count 3.42 MC/CUMM (3.8-5.5); Red Cell Distribution Width 12.7 % (9.3-17.3); White Blood Count 14.5 T/CUMM (4-12)
[2017-03-22 06:10] LABS: Hemoglobin 11.3 GM/DL (12.0-16.0)
[2017-03-22 06:16] LABS: Hypochromasia 2+; Lymphocytes 6 % (20-55); Segmented Neutrophils 91 % (50-85); Total Cells Counted 100
[2017-03-22 06:17] LABS: Platelet Estimate Adequate
[2017-03-22 06:43] LABS: Osmolality,Calculated 289.4 MOS/KG (273-304); Potassium 3.5 MMOL/L (3.5-5.1)
[2017-03-22] MEDS: ASCORBIC ACID 500 MG TABLET PO SCH (10:56)
[2017-03-22] MEDS: SODIUM CHLORIDE 1 GM TABLET PO SCH ×2 (10:56→21:08)
[2017-03-22] MEDS: LACTOBACILLUS ACIDOPHILUS/BULGARICUS CAPLET PO SCH ×2 (10:56→21:08)
[2017-03-22] MEDS: FLECAINIDE 50 MG TABLET PO SCH ×2 (10:56→21:08)
[2017-03-22] MEDS: CHOLECALCIFEROL 1,000 UNIT TABLET PO SCH (10:56)
[2017-03-22] MEDS: PANTOPRAZOLE 40 MG TABLET PO SCH ×2 (10:57→21:09)
[2017-03-22] MEDS: CHOLESTYRAMINE/ASPARTAME 4 GM PACK PO SCH (10:57)
[2017-03-22] MEDS: GABAPENTIN 100 MG CAPSULE PO SCH ×4 (10:57→21:08)
[2017-03-22] MEDS: DABIGATRAN 75 MG CAPSULE PO SCH ×2 (10:58→21:08)
[2017-03-22] MEDS: MULTIVITAMIN (CENTRUM) TABLET PO SCH (10:58)
[2017-03-22] MEDS: ZINC OXIDE PASTE 113 GM TUBE TOP SCH ×2 (10:59→21:06)
[2017-03-22] MEDS: metOLazone 5 MG TABLET PO SCH (10:59)
[2017-03-22] MEDS: FLUTICASONE 50 MCG NASAL SPRAY 16 GM BOTTLE BOTH NARES SCH ×2 (10:59→21:08)
[2017-03-22] MEDS: DICLOFENAC 1% GEL 100 GM TUBE TOP SCH ×3 (10:59→21:07)
[2017-03-22] MEDS: AZITHROMYCIN INJ 500 MG in SODIUM CHLORIDE 0.9% 250 ML IV SCH (11:19)
[2017-03-22] MEDS: DIGOXIN 0.25 MG TABLET PO SCH (13:52)
[2017-03-22] MEDS: MORPHINE 2 MG/1 ML SYRINGE IV PRN (13:52)
[2017-03-22] MEDS: VANCOMYCIN INJ 1,000 MG in SODIUM CHLORIDE 0.9% 250 ML IV SCH (13:54)
[2017-03-22 16:03] LABS: Albumin 1.8 G/DL (3.4-5.0); Bilirubin,Direct 0.45 MG/DL (0.0-0.20); Bilirubin,Indirect 0.4 MG/DL (0.0-1.0); Bilirubin,Total 0.8 MG/DL (0.2-1.0)
[2017-03-22] MEDS: SODIUM CHLORIDE 0.9% 1,000 ML IV SCH (16:22)
[2017-03-22] MEDS ORDERED: PANTOPRAZOLE 40 MG VIAL IV SCH (21:00)
[2017-03-22] MEDS: PANTOPRAZOLE 40 MG VIAL IV SCH (21:07)
[2017-03-22] MEDS: LIDOCAINE 5% PATCH TRANSDERM SCH (21:07)
[2017-03-22] MEDS: MIRTAZAPINE 30 MG TABLET PO SCH (21:07)
[2017-03-23] MEDS: ALBUTEROL/IPRATROPIUM 3 ML NEB RESP TX SCH ×4 (01:06→19:24)
[2017-03-23] MEDS: methylPREDNISolone SOD SUC 125 MG/2 ML VIAL IV SCH ×3 (03:04→19:09)
[2017-03-23] MEDS: MEROPENEM 1,000 MG in SYRINGE 1 EACH IV SCH ×2 (03:05→15:45)
[2017-03-23 04:12] LABS: ABG Base Excess 16.8 MMOL/L (-2.5-2.5); ABG HCO3 39.1 MMOL/L (20-26); ABG Oxygen Saturation 99.1 % (95-100); ABG PCO2 37.6 MM HG (35-48); ABG PH 7.635 (7.35-7.45); ABG PO2 200.9 MM HG (80-95); ABG TCO2 40.3 MMOL/L (23-27)
[2017-03-23] MEDS: SODIUM CHLORIDE 0.9% 1,000 ML IV SCH ×2 (05:12→19:42)
[2017-03-23] MEDS: PROPOFOL 1,000 MG/100 ML BOTTLE IV SCH ×3 (05:12→23:17)
[2017-03-23 05:21] LABS: Basophils % 0.1 % (0.0-0.8); Hematocrit 31.8 VOL% (35.7-47.0); Hemoglobin 11.3 GM/DL (12.0-16.0); Immature Granulocytes % 0.7 %; Immature Granulocytes Absolute 0.12 #; Lymphocytes # 0.3 10*3/uL (1.4-4.0); Lymphocytes % 1.9 % (21.3-54.2); Mean Corpuscular HGB Conc 35.5 GM/DL (32-36); Mean Corpuscular Hemoglobin 33 PG (27-34); Mean Corpuscular Volume 92.2 FL (87-102); Mean Platelet Volume 9.5 FL (9.6-12.0); Monocytes # 0.8 10*3/uL (0.11-0.8); Monocytes % 4.9 % (1.7-12.7); Neutrophils # 15.3 10*3/uL (1.4-7.4); Neutrophils % 92.4 % (38.7-73.9); Platelet Count 155 T/CUMM (130-400); Red Blood Count 3.45 MC/CUMM (3.8-5.5); Red Cell Distribution Width 13.1 % (9.3-17.3); White Blood Count 16.6 T/CUMM (4-12)
[2017-03-23 05:47] LABS: Hypochromasia 1+; Lymphocytes 1 % (20-55); Platelet Estimate Normal; Segmented Neutrophils 93 % (50-85); Total Cells Counted 100
[2017-03-23 05:48] LABS: Giant Platelets Few
[2017-03-23 06:02] LABS: Calcium 7.9 MG/DL (8.5-10.1); Osmolality,Calculated 287.2 MOS/KG (273-304)
[2017-03-23] MEDS: MORPHINE 2 MG/1 ML SYRINGE IV PRN ×2 (07:31→15:21)
[2017-03-23] MEDS ORDERED: MAGNESIUM SULF RIDER 4 GM in PREMIX 1 EACH IV PRN (08:26)
[2017-03-23] MEDS ORDERED: MAGNESIUM SULF RIDER 2 GM in PREMIX 1 EACH IV PRN (08:26)
[2017-03-23] MEDS: PANTOPRAZOLE 40 MG VIAL IV SCH ×2 (10:59→20:37)
[2017-03-23] MEDS: CHOLECALCIFEROL 1,000 UNIT TABLET PO SCH (11:00)
[2017-03-23] MEDS: POTASSIUM CHLORIDE 20 MEQ/15 ML UDCUP PER TUBE PRN ×3 (11:00→21:49)
[2017-03-23] MEDS: FLECAINIDE 50 MG TABLET PO SCH ×2 (11:00→20:41)
[2017-03-23] MEDS: SODIUM CHLORIDE 1 GM TABLET PO SCH ×2 (11:00→20:38)
[2017-03-23] MEDS: MULTIVITAMIN (CENTRUM) TABLET PO SCH (11:01)
[2017-03-23] MEDS: ASCORBIC ACID 500 MG TABLET PO SCH (11:01)
[2017-03-23] MEDS: GABAPENTIN 100 MG CAPSULE PO SCH ×4 (11:01→20:38)
[2017-03-23] MEDS: APIXABAN 2.5 MG TABLET NG SCH ×2 (11:01→20:38)
[2017-03-23] MEDS: LACTOBACILLUS ACIDOPHILUS/BULGARICUS CAPLET PO SCH ×2 (11:01→20:38)
[2017-03-23] MEDS: ZINC OXIDE PASTE 113 GM TUBE TOP SCH ×2 (11:02→22:47)
[2017-03-23] MEDS: DICLOFENAC 1% GEL 100 GM TUBE TOP SCH ×3 (11:02→20:39)
[2017-03-23] MEDS: FLUTICASONE 50 MCG NASAL SPRAY 16 GM BOTTLE BOTH NARES SCH ×2 (11:02→20:38)
[2017-03-23] MEDS: FLUCONAZOLE INJ 100 MG in IV BAG 1 EACH IV SCH (11:05)
[2017-03-23] MEDS ORDERED: BISACODYL 5 MG TABLET PO SCH ×2 (11:30→21:00)
[2017-03-23] MEDS: POTASSIUM CHLORIDE 20 MEQ TABLET PO SCH ×3 (11:36→17:26)
[2017-03-23] MEDS: VANCOMYCIN INJ 1,000 MG in SODIUM CHLORIDE 0.9% 250 ML IV SCH (14:00)
[2017-03-23] MEDS: DIGOXIN 0.25 MG TABLET PO SCH (15:43)
[2017-03-23] MEDS ORDERED: MAGNESIUM CITRATE 300 ML BOTTLE PO ONE (15:58)
[2017-03-23] MEDS ORDERED: POTASSIUM CHLORIDE 20 MEQ TABLET PO SCH (17:30)
[2017-03-23] MEDS: LIDOCAINE 5% PATCH TRANSDERM SCH ×2 (20:37→20:49)
[2017-03-23] MEDS: POLYETHYLENE GLYCOL POWDER 17 GM PACK NG SCH (20:39)
[2017-03-24] MEDS: ALBUTEROL/IPRATROPIUM 3 ML NEB RESP TX SCH ×4 (01:29→19:06)
[2017-03-24] MEDS: MEROPENEM 1,000 MG in SYRINGE 1 EACH IV SCH ×2 (04:17→15:36)
[2017-03-24] MEDS: methylPREDNISolone SOD SUC 125 MG/2 ML VIAL IV SCH ×3 (04:17→18:17)
[2017-03-24 05:17] LABS: ABG Base Excess 12.8 MMOL/L (-2.5-2.5); ABG HCO3 35.4 MMOL/L (20-26); ABG Oxygen Saturation 98.3 % (95-100); ABG PCO2 37.4 MM HG (35-48); ABG PH 7.594 (7.35-7.45); ABG PO2 120.5 MM HG (80-95); ABG TCO2 36.5 MMOL/L (23-27); Pt O2 Delivery Device Ventilator
[2017-03-24] MEDS: SODIUM CHLORIDE 0.9% 1,000 ML IV SCH ×2 (05:22→16:59)
[2017-03-24] MEDS: PROPOFOL 1,000 MG/100 ML BOTTLE IV SCH ×3 (05:23→20:39)
[2017-03-24 05:51] LABS: Calcium 7.6 MG/DL (8.5-10.1); Osmolality,Calculated 291.7 MOS/KG (273-304); Potassium 4.8 MMOL/L (3.5-5.1)
[2017-03-24 07:04] LABS: Hematocrit 33.5 VOL% (35.7-47.0); Hemoglobin 11.7 GM/DL (12.0-16.0); Immature Granulocytes % 1.2 %; Immature Granulocytes Absolute 0.18 #; Lymphocytes # 0.3 10*3/uL (1.4-4.0); Lymphocytes % 2.2 % (21.3-54.2); Mean Corpuscular HGB Conc 34.9 GM/DL (32-36); Mean Corpuscular Hemoglobin 33 PG (27-34); Mean Corpuscular Volume 93.8 FL (87-102); Mean Platelet Volume 9.8 FL (9.6-12.0); Monocytes # 0.5 10*3/uL (0.11-0.8); Monocytes % 3.4 % (1.7-12.7); Neutrophils # 14.4 10*3/uL (1.4-7.4); Neutrophils % 93.2 % (38.7-73.9); Platelet Count 170 T/CUMM (130-400); Red Blood Count 3.57 MC/CUMM (3.8-5.5); White Blood Count 15.5 T/CUMM (4-12)
[2017-03-24 07:39] LABS: Hypochromasia 1+; Lymphocytes 2 % (20-55); Ovalocytes Slight; Platelet Estimate Normal; Segmented Neutrophils 97 % (50-85); Total Cells Counted 100
[2017-03-24] MEDS ORDERED: POLYETHYLENE GLYCOL POWDER 17 GM PACK PO SCH (09:00)
[2017-03-24] MEDS: MULTIVITAMIN (CENTRUM) TABLET PO SCH (09:45)
[2017-03-24] MEDS: FLECAINIDE 50 MG TABLET PO SCH ×2 (09:45→20:29)
[2017-03-24] MEDS: GABAPENTIN 100 MG CAPSULE PO SCH ×4 (09:45→20:28)
[2017-03-24] MEDS: APIXABAN 2.5 MG TABLET NG SCH (09:45)
[2017-03-24] MEDS: ASCORBIC ACID 500 MG TABLET PO SCH (09:45)
[2017-03-24] MEDS: CHOLECALCIFEROL 1,000 UNIT TABLET PO SCH (09:45)
[2017-03-24] MEDS: SODIUM CHLORIDE 1 GM TABLET PO SCH ×2 (09:45→20:29)
[2017-03-24] MEDS: FLUTICASONE 50 MCG NASAL SPRAY 16 GM BOTTLE BOTH NARES SCH ×2 (09:46→20:29)
[2017-03-24] MEDS: CHOLESTYRAMINE/ASPARTAME 4 GM PACK PO SCH (09:46)
[2017-03-24] MEDS: POLYETHYLENE GLYCOL POWDER 17 GM PACK NG SCH ×2 (09:46→20:29)
[2017-03-24] MEDS: PANTOPRAZOLE 40 MG VIAL IV SCH ×2 (09:46→20:29)
[2017-03-24] MEDS ORDERED: DEXTROSE 50% 25 GM/50 ML VIAL IV PRN (09:48)
[2017-03-24] MEDS ORDERED: GLUCAGON 1 MG VIAL IM PRN (09:48)
[2017-03-24] MEDS: ZINC OXIDE PASTE 113 GM TUBE TOP SCH ×2 (09:53→20:30)
[2017-03-24] MEDS: DICLOFENAC 1% GEL 100 GM TUBE TOP SCH ×3 (09:53→20:30)
[2017-03-24] MEDS: INSULIN REGULAR 100 UNIT/ML SUBCUT SCH ×2 (12:41→18:29)
[2017-03-24] MEDS: FLUCONAZOLE INJ 100 MG in IV BAG 1 EACH IV SCH (12:49)
[2017-03-24] MEDS: DIGOXIN 0.25 MG TABLET PO SCH (12:50)
[2017-03-24] MEDS: LACTOBACILLUS ACIDOPHILUS/BULGARICUS CAPLET PO SCH ×2 (12:54→20:29)
[2017-03-24] MEDS: VANCOMYCIN INJ 1,000 MG in SODIUM CHLORIDE 0.9% 250 ML IV SCH (14:02)
[2017-03-24] MEDS: LIDOCAINE 5% PATCH TRANSDERM SCH (20:28)
[2017-03-24] MEDS: APIXABAN 5 MG TABLET NG SCH (20:29)
[2017-03-25] MEDS: INSULIN REGULAR 100 UNIT/ML SUBCUT SCH ×4 (00:04→17:55)
[2017-03-25] MEDS: ALBUTEROL/IPRATROPIUM 3 ML NEB RESP TX SCH ×4 (00:57→19:10)
[2017-03-25] MEDS: SODIUM CHLORIDE 0.9% 1,000 ML IV SCH ×2 (02:26→14:31)
[2017-03-25] MEDS: MEROPENEM 1,000 MG in SYRINGE 1 EACH IV SCH ×2 (03:00→15:08)
[2017-03-25] MEDS: methylPREDNISolone SOD SUC 125 MG/2 ML VIAL IV SCH ×3 (03:00→18:44)
[2017-03-25 03:26] LABS: ABG Base Excess 8.7 MMOL/L (-2.5-2.5); ABG HCO3 32.4 MMOL/L (20-26); ABG Oxygen Saturation 97.2 % (95-100); ABG PCO2 36.1 MM HG (35-48); ABG TCO2 28.1 MMOL/L (23-27); Allen Test Positive; Pt O2 Delivery Device Ventilator
[2017-03-25 03:27] LABS: Basophils % 0.1 % (0.0-0.8); Hemoglobin 9.9 GM/DL (12.0-16.0); Immature Granulocytes % 0.5 %; Immature Granulocytes Absolute 0.08 #; Lymphocytes # 0.4 10*3/uL (1.4-4.0); Lymphocytes % 2.3 % (21.3-54.2); Mean Corpuscular HGB Conc 34.1 GM/DL (32-36); Mean Corpuscular Hemoglobin 33 PG (27-34); Mean Platelet Volume 9.8 FL (9.6-12.0); Monocytes # 0.5 10*3/uL (0.11-0.8); Monocytes % 3.3 % (1.7-12.7); Neutrophils # 14.6 10*3/uL (1.4-7.4); Neutrophils % 93.8 % (38.7-73.9); Platelet Count 156 T/CUMM (130-400); Red Blood Count 2.99 MC/CUMM (3.8-5.5); Red Cell Distribution Width 13.2 % (9.3-17.3); White Blood Count 15.5 T/CUMM (4-12)
[2017-03-25 04:00] LABS: Calcium 6.4 MG/DL (8.5-10.1); Osmolality,Calculated 293.4 MOS/KG (273-304)
[2017-03-25 04:01] LABS: Lymphocytes 6 % (20-55); Segmented Neutrophils 91 % (50-85); Total Cells Counted 100
[2017-03-25 04:02] LABS: Platelet Estimate Normal
[2017-03-25 04:03] LABS: Hypochromasia 1+; Smudge Cells Few; Target Cells Few
[2017-03-25 04:11] LABS: Magnesium 1.8 MG/DL (1.8-2.4); Prealbumin 32.3 MG/DL (20-40)
[2017-03-25] MEDS: POTASSIUM CHLORIDE 20 MEQ/15 ML UDCUP PER TUBE PRN ×4 (04:49→13:17)
[2017-03-25] MEDS: PROPOFOL 1,000 MG/100 ML BOTTLE IV SCH ×2 (05:14→13:07)
[2017-03-25] MEDS: ASCORBIC ACID 500 MG TABLET PO SCH (10:28)
[2017-03-25] MEDS: CHOLECALCIFEROL 1,000 UNIT TABLET PO SCH (10:28)
[2017-03-25] MEDS: FLECAINIDE 50 MG TABLET PO SCH ×2 (10:29→20:27)
[2017-03-25] MEDS: GABAPENTIN 100 MG CAPSULE PO SCH ×4 (10:29→20:27)
[2017-03-25] MEDS: SODIUM CHLORIDE 1 GM TABLET PO SCH ×2 (10:35→20:27)
[2017-03-25] MEDS: LACTOBACILLUS ACIDOPHILUS/BULGARICUS CAPLET PO SCH ×2 (10:36→20:27)
[2017-03-25] MEDS: APIXABAN 5 MG TABLET NG SCH ×2 (10:36→20:28)
[2017-03-25] MEDS: MULTIVITAMIN (CENTRUM) TABLET PO SCH (10:36)
[2017-03-25] MEDS: DICLOFENAC 1% GEL 100 GM TUBE TOP SCH ×3 (10:37→20:28)
[2017-03-25] MEDS: FLUTICASONE 50 MCG NASAL SPRAY 16 GM BOTTLE BOTH NARES SCH ×2 (10:37→20:49)
[2017-03-25] MEDS: POLYETHYLENE GLYCOL POWDER 17 GM PACK NG SCH ×2 (10:37→20:27)
[2017-03-25] MEDS: ZINC OXIDE PASTE 113 GM TUBE TOP SCH ×2 (10:38→20:28)
[2017-03-25] MEDS: PANTOPRAZOLE 40 MG VIAL IV SCH ×2 (10:41→20:27)
[2017-03-25] MEDS: FLUCONAZOLE INJ 100 MG in IV BAG 1 EACH IV SCH (11:15)
[2017-03-25] MEDS: DIGOXIN 0.25 MG TABLET PO SCH (12:44)
[2017-03-25] MEDS: LIDOCAINE 5% PATCH TRANSDERM SCH (20:27)
[2017-03-26] MEDS: INSULIN REGULAR 100 UNIT/ML SUBCUT SCH ×4 (00:02→18:30)
[2017-03-26] MEDS: ALBUTEROL/IPRATROPIUM 3 ML NEB RESP TX SCH ×4 (00:11→19:38)
[2017-03-26] MEDS: methylPREDNISolone SOD SUC 125 MG/2 ML VIAL IV SCH ×3 (03:03→18:31)
[2017-03-26] MEDS: MEROPENEM 1,000 MG in SYRINGE 1 EACH IV SCH (03:04)
[2017-03-26 03:45] LABS: Basophils % 0.1 % (0.0-0.8); Hematocrit 30.5 VOL% (35.7-47.0); Hemoglobin 10.2 GM/DL (12.0-16.0); Immature Granulocytes % 0.7 %; Immature Granulocytes Absolute 0.13 #; Lymphocytes # 0.4 10*3/uL (1.4-4.0); Mean Corpuscular HGB Conc 33.4 GM/DL (32-36); Mean Corpuscular Hemoglobin 33 PG (27-34); Mean Corpuscular Volume 98.7 FL (87-102); Mean Platelet Volume 10.3 FL (9.6-12.0); Monocytes # 0.6 10*3/uL (0.11-0.8); Monocytes % 3.1 % (1.7-12.7); Neutrophils # 17.7 10*3/uL (1.4-7.4); Neutrophils % 94.1 % (38.7-73.9); Platelet Count 167 T/CUMM (130-400); Red Blood Count 3.09 MC/CUMM (3.8-5.5); Red Cell Distribution Width 13.2 % (9.3-17.3); White Blood Count 18.8 T/CUMM (4-12)
[2017-03-26] MEDS: SODIUM CHLORIDE 0.9% 1,000 ML IV SCH ×2 (03:57→17:05)
[2017-03-26 04:06] LABS: Allen Test Positive; Pt O2 Delivery Device Ventilator
[2017-03-26 04:07] LABS: ABG Base Excess 7.6 MMOL/L (-2.5-2.5); ABG HCO3 31.4 MMOL/L (20-26); ABG Oxygen Saturation 97.8 % (95-100); ABG TCO2 27.8 MMOL/L (23-27)
[2017-03-26 04:12] LABS: Band Neutrophils 5 % (0-10); Lymphocytes 2 % (20-55); Segmented Neutrophils 93 % (50-85); Total Cells Counted 100
[2017-03-26 04:14] LABS: Poikilocytosis 1+
[2017-03-26] MEDS: PROPOFOL 1,000 MG/100 ML BOTTLE IV SCH ×2 (04:28→18:33)
[2017-03-26 04:45] LABS: Magnesium 2.3 MG/DL (1.8-2.4); Osmolality,Calculated 298.3 MOS/KG (273-304); Phosphorous 1.9 MG/DL (2.5-4.9); Potassium 4.1 MMOL/L (3.5-5.1)
[2017-03-26] MEDS: SODIUM CHLORIDE 1 GM TABLET PO SCH ×2 (09:03→21:09)
[2017-03-26] MEDS: LACTOBACILLUS ACIDOPHILUS/BULGARICUS CAPLET PO SCH ×2 (09:03→21:10)
[2017-03-26] MEDS: POLYETHYLENE GLYCOL POWDER 17 GM PACK NG SCH ×2 (09:03→21:11)
[2017-03-26] MEDS: MULTIVITAMIN (CENTRUM) TABLET PO SCH (09:03)
[2017-03-26] MEDS: ASCORBIC ACID 500 MG TABLET PO SCH (09:03)
[2017-03-26] MEDS: CHOLECALCIFEROL 1,000 UNIT TABLET PO SCH (09:03)
[2017-03-26] MEDS: FLECAINIDE 50 MG TABLET PO SCH ×2 (09:03→21:09)
[2017-03-26] MEDS: APIXABAN 5 MG TABLET NG SCH ×2 (09:03→21:09)
[2017-03-26] MEDS: FLUTICASONE 50 MCG NASAL SPRAY 16 GM BOTTLE BOTH NARES SCH ×2 (09:04→21:10)
[2017-03-26] MEDS: PANTOPRAZOLE 40 MG VIAL IV SCH ×2 (09:04→21:09)
[2017-03-26] MEDS: DICLOFENAC 1% GEL 100 GM TUBE TOP SCH ×3 (09:07→21:12)
[2017-03-26] MEDS: ZINC OXIDE PASTE 113 GM TUBE TOP SCH ×2 (09:07→21:12)
[2017-03-26] MEDS: GABAPENTIN 50 MG/ML 30 ML/BOTTLE NG SCH ×4 (10:46→21:08)
[2017-03-26] MEDS ORDERED: POTASSIUM PHOSPHATE 30 MMOL in SODIUM CHLORIDE 0.9% 250 ML IV ONE (11:00)
[2017-03-26] MEDS: FLUCONAZOLE INJ 100 MG in IV BAG 1 EACH IV SCH (11:02)
[2017-03-26] MEDS: DIGOXIN 0.25 MG TABLET PO SCH (13:26)
[2017-03-26] MEDS: LIDOCAINE 5% PATCH TRANSDERM SCH (21:10)
[2017-03-27] MEDS: INSULIN REGULAR 100 UNIT/ML SUBCUT SCH ×3 (00:20→12:19)
[2017-03-27] MEDS: ALBUTEROL/IPRATROPIUM 3 ML NEB RESP TX SCH ×3 (00:55→12:25)
[2017-03-27] MEDS: methylPREDNISolone SOD SUC 125 MG/2 ML VIAL IV SCH ×2 (02:21→11:47)
[2017-03-27 03:46] LABS: ABG Base Excess 6.5 MMOL/L (-2.5-2.5); ABG HCO3 30.9 MMOL/L (20-26); ABG Oxygen Saturation 97.7 % (95-100); ABG PCO2 44.1 MM HG (35-48); ABG PH 7.464 (7.35-7.45); ABG PO2 105.3 MM HG (80-95); ABG TCO2 32.3 MMOL/L (23-27)
[2017-03-27 04:20] LABS: Basophils % 0.1 % (0.0-0.8); Hemoglobin 10.8 GM/DL (12.0-16.0); Immature Granulocytes % 0.8 %; Lymphocytes # 0.4 10*3/uL (1.4-4.0); Lymphocytes % 1.7 % (21.3-54.2); Mean Corpuscular HGB Conc 32.7 GM/DL (32-36); Mean Corpuscular Hemoglobin 32 PG (27-34); Mean Corpuscular Volume 98.5 FL (87-102); Mean Platelet Volume 10.5 FL (9.6-12.0); Monocytes # 0.7 10*3/uL (0.11-0.8); Monocytes % 2.8 % (1.7-12.7); Neutrophils # 22.7 10*3/uL (1.4-7.4); Neutrophils % 94.6 % (38.7-73.9); Platelet Count 202 T/CUMM (130-400); Red Blood Count 3.35 MC/CUMM (3.8-5.5); Red Cell Distribution Width 13.3 % (9.3-17.3)
[2017-03-27] MEDS: SODIUM CHLORIDE 0.9% 1,000 ML IV SCH ×2 (05:46→13:16)
[2017-03-27] MEDS: PROPOFOL 1,000 MG/100 ML BOTTLE IV SCH (05:46)
[2017-03-27 08:08] LABS: Hypochromasia 1+; Lymphocytes 1 % (20-55); Segmented Neutrophils 97 % (50-85); Total Cells Counted 100
[2017-03-27 08:09] LABS: Microcytosis 1+; Platelet Estimate Adequate
[2017-03-27] MEDS ORDERED: DIPHENOXYLATE/ATROPINE 2.5-0.025 MG TABLET PO PRN (09:02)
[2017-03-27] MEDS: ASCORBIC ACID 500 MG TABLET PO SCH (09:43)
[2017-03-27] MEDS: CHOLECALCIFEROL 1,000 UNIT TABLET PO SCH (09:43)
[2017-03-27] MEDS: LACTOBACILLUS ACIDOPHILUS/BULGARICUS CAPLET PO SCH (09:44)
[2017-03-27] MEDS: FLECAINIDE 50 MG TABLET PO SCH (09:44)
[2017-03-27] MEDS: MULTIVITAMIN (CENTRUM) TABLET PO SCH (09:44)
[2017-03-27] MEDS: FLUTICASONE 50 MCG NASAL SPRAY 16 GM BOTTLE BOTH NARES SCH (09:44)
[2017-03-27] MEDS: SODIUM CHLORIDE 1 GM TABLET PO SCH (09:44)
[2017-03-27] MEDS: PANTOPRAZOLE 40 MG VIAL IV SCH (09:45)
[2017-03-27] MEDS: GABAPENTIN 50 MG/ML 30 ML/BOTTLE NG SCH ×2 (09:49→13:15)
[2017-03-27] MEDS: ZINC OXIDE PASTE 113 GM TUBE TOP SCH (09:50)
[2017-03-27] MEDS: DICLOFENAC 1% GEL 100 GM TUBE TOP SCH (09:50)
[2017-03-27] MEDS: POLYETHYLENE GLYCOL POWDER 17 GM PACK NG SCH (09:57)
[2017-03-27] MEDS: APIXABAN 5 MG TABLET NG SCH (09:57)
[2017-03-27 11:17] LABS: Albumin 2.1 G/DL (3.4-5.0); Bilirubin,Total 0.8 MG/DL (0.2-1.0); Osmolality,Calculated 301.3 MOS/KG (273-304); Potassium 4.9 MMOL/L (3.5-5.1); Total Protein 4.5 G/DL (6.4-8.3)
[2017-03-27] MEDS: DIGOXIN 0.25 MG TABLET PO SCH (13:15)
[2017-03-27 14:30] VITALS: BP 109/57
== END 2017-03-27 14:30 | disposition hospice, home (50) | DRG 207 ==
LOC: EDUNIT# → EDBD → N.ED 22:57 → SUATTDRO 03-12 01:46 → N.EDINP 03-12 01:46 → N.TELES 03-12 02:31 → N.ICU 03-21 14:31
PROVIDERS: ADMIT Hospitalist; ATTEND Internal Medicine